=== PATIENT | male | born 1965 | race African-American/Black ===

== ENCOUNTER 2017-01-16 12:29 | Inpatient (IN) | payer OTHER ==
[2017-01-16 14:17] VITALS: BMI 32.3
--- NOTE | 2017-01-16 15:04 | HP ---
CIWA Score - CIWA Score Nausea/Vomitin Muscle Tremors: 3 Anxiety: 3 Agitation: 3 Paroxysmal Sweats: 1-Minimal Palms Moist Orientation: 0-Oriented Tacttile Disturbances: 2-Mild Itch/Numbness/Burn Auditory Disturbances: 2-Mild Harshness/Frighten Visual Disturbances: 2-Mild Sensitivity Headache: 2-Mild CIWA-Ar Total Score: 21 Admission ROS BHS - HPI Chief Complaint: i need help to stop drinking alcohol Allergies/Adverse Reactions: Allergies Allergy/AdvReac Type Severity Reaction Status Date / Time No Known Allergies Allergy Verified 01/16/17 14:54 History of Present Illness: this 51 year old male with alcohol dependence seeking help to stop using ,last detox 10/17/15 to 10/22/15 multiple medical problem type 2 dm,gerd,asthma schizophrenia longest period of sobriety 6 months - Ebola screening Have you traveled outside of the country in the last 21 days: No Have you had contact with anyone from an Ebola affected area: No Have you been sick,other than usual withdrawal symptoms: No Do you have a fever: No - Review of Systems Constitutional: Loss of Appetite, Malaise, Night Sweats, Changes in sleep EENT: reports: Nose Congestion Respiratory: reports: Other (asthma) Cardiac: reports: Palpitations GI: reports: Diarrhea, Nausea, Poor Appetite, Vomiting : reports: No Symptoms Reported Musculoskeletal: reports: Muscle Pain Integumentary: reports: Dryness Neuro: reports: Headache, Tremors Endocrine: reports: No Symptoms Reported Hematology: reports: No Symptoms Reported Psychiatric: reports: No Sypmtoms Reported (schizophrenia), Judgement Intact, Mood/Affect Appropiate Patient History - Patient Medical History Hx Anemia: No Hx Asthma: Yes (on albuterol inhaler) Hx Chronic Obstructive Pulmonary Disease (COPD): No Hx Cancer: No Hx Cardiac Disorders: No Hx Congestive Heart Failure: No Hx Hypertension: No Hx Hypercholesterolemia: No Hx Pacemaker: No HX Cerebrovascular Accident: No Hx Seizures: No Hx Dementia: No Hx Diabetes: Yes (NIDDM) Hx Gastrointestinal Disorders: Yes (acid reflux) Hx Liver Disease: No Hx Genitourinary Disorders: No Hx Sexually Transmitted Disorders: No Hx Renal Disease (ESRD): No Hx Thyroid Disease: No Hx Human Immunodeficiency Virus (HIV): No (NEGATIVE LAST 08/24) Hx Hepatitis C: No Hx Depression: Yes Hx Suicide Attempt: No Hx Bipolar Disorder: No Hx Schizophrenia: Yes Other Medical History: no suicidal,no homicidal - Patient Surgical History Past Surgical History: Yes Hx Neurologic Surgery: No Hx Cataract Extraction: No Hx Cardiac Surgery: No Hx Lung Surgery: No Hx Breast Surgery: No Hx Breast Biopsy: No Hx Abdominal Surgery: No Hx Appendectomy: No Hx Cholecystectomy: No Hx Genitourinary Surgery: No Hx Section: No Hx Orthopedic Surgery: Yes (R femur fx with sx/ libra in place in ) Anesthesia Reaction: No - PPD History Previous Implant?: Yes Documented Results: Positive w/o proof Results: CXR NEG 08/15/14 PPD to be Administered?: No - Smoking Cessation Smoking history: Current every day smoker Have you smoked in the past 12 months: Yes Aproximately how many cigarettes per day: 10 Cigars Per Day: 0 Hx Chewing Tobacco Use: No Initiated information on smoking cessation: Yes 'Breaking Loose' booklet given: 01/16/17 - Substance & Tx. History Hx Alcohol Use: Yes Hx Substance Use: No Substance Use Type: Alcohol Hx Substance Use Treatment: Yes ([facility] 10/17/15 to 10/22/15) - Substances Abused PCP Route: Smoking Frequency: 3-6 times per week Amount used: $10 Age of first use: 29 Date of Last Use: 01/13/17 Alcohol-beer Route: Oral Frequency: Daily Amount used: 1-6 pk. Age of first use: 17 Date of Last Use: 01/16/17 Family Disease History - Family Disease History Family Disease History: Diabetes: Mother (), Sister, Other: Father ( ALCOHOL) Admission Physical Exam S - Vital Signs Vital Signs: Vital Signs - 24 hr 01/16/17 14:14 Temperature 98.5 F Pulse Rate 82 Respiratory 18 Rate Blood Pressure 150/88 - Physical General Appearance: Yes: Moderate Distress, Tremorous, Irritable, Sweating, Anxious HEENTM: Yes: Rhinorrhea Respiratory: Yes: Lungs Clear, Normal Breath Sounds, No Respiratory Distress Neck: Yes: Within Normal Limits Breast: Yes: Within Normal Limits Cardiology: Yes: Within Normal Limits, Regular Rhythm, Regular Rate, S1, S2 Abdominal: Yes: Normal Bowel Sounds, Non Tender, Flat, Soft, Pulsatile Mass Genitourinary: Yes: Within Normal Limits Back: Yes: Within Normal Limits, Muscle Spasm Musculoskeletal: Yes: Within Normal Limits, full range of Motion, Muscle Pain Extremities: Yes: Normal Inspection, Normal Range of Motion, Tremors Neurological: Yes: siebel administrator II-XII NML intact, Fully Oriented, Alert, Motor Strength 5/5 Integumentary: Yes: Dry Lymphatic: Yes: Within Normal Limits - Diagnostic (1) Alcohol dependence with uncomplicated withdrawal Current Visit: No Status: Acute (2) Nicotine dependence Current Visit: No Status: Acute Qualifiers: Nicotine product type: cigarettes Substance use status: uncomplicated Qualified Code(s): F17.210 - Nicotine dependence, cigarettes, uncomplicated (3) Cocaine dependence Current Visit: No Status: Chronic Qualifiers: Substance use status: uncomplicated Qualified Code(s): F14.20 - Cocaine dependence, uncomplicated (4) DM Diabetes mellitus type 2 Current Visit: No Status: Chronic (5) Low back pain Current Visit: No Status: Chronic (6) PCP (phencyclidine) abuse Current Visit: No Status: Chronic (7) Schizophrenia Current Visit: No Status: Chronic (8) Asthma Current Visit: No Status: Chronic Qualifiers: Asthma severity: unspecified severity Asthma complication type: uncomplicated Qualified Code(s): J45.909 - Unspecified asthma, uncomplicated Cleared for Admission S - Detox or Rehab [facility] Level of Care: Medically Managed Detox Regimen/Protocol: Librium [facility] Breath Alcohol Content Breath Alcohol Content: 0 Urine Drug Screen - Results Drug Screen Negative: No Urine Drug Screen Results: DORIAN-Cocaine, PCP-Phencyclidine
[2017-01-16] MEDS ORDERED: ACETAMINOPHEN 325 MG TABLET (FP) PO PRN (15:17)
[2017-01-16] MEDS ORDERED: MAGNESIUM CITRATE 300 ML BOTTLE PO PRN (15:17)
[2017-01-16] MEDS ORDERED: chlordiazePOXIDE HCL 25 MG CAPSULE PO PRN (15:17)
[2017-01-16] MEDS ORDERED: hydrOXYzine PAMOATE 50 MG CAPSULE (FP) PO PRN (15:17)
[2017-01-16] MEDS ORDERED: MENTHOL/PHENOL 1 EACH UD MM PRN (15:17)
[2017-01-16] MEDS ORDERED: LOPERAMIDE HCL 2 MG CAPSULE PO PRN (15:17)
[2017-01-16] MEDS ORDERED: guaiFENesin/D-METHORPHAN HB 10 ML UNIT-DOSE CUPS PO PRN (15:17)
[2017-01-16] MEDS ORDERED: P-EPHED 60MG/TRIPROLIDI 2.5MG TABLET PO PRN (15:17)
[2017-01-16] MEDS ORDERED: MAG HYDROX/AL HYDROX/SIMETH 30 ML UNIT-DOSE CUP PO PRN (15:17)
[2017-01-16] MEDS ORDERED: IBUPROFEN 400 MG TABLET (FP) PO PRN (15:17)
[2017-01-16] MEDS ORDERED: MAGNESIUM HYDROX 2400MG/30ML ORAL SUSPENSION 30 ML CUP PO PRN (15:17)
[2017-01-16] MEDS ORDERED: ALBUTEROL SO4 6.7 GM HFA INHALER IH PRN (15:21)
[2017-01-16] MEDS ORDERED: INSULIN (NOVOLOG) ASPART 100 UNITS/ML 10ML VIAL SQ ONE (16:00)
[2017-01-16] MEDS ORDERED: chlordiazePOXIDE HCL 25 MG CAPSULE PO ONE (16:00)
[2017-01-16 17:32] LABS: URINE APPEARANCE CLEAR; URINE BILIRUBIN NEGATIVE (NEGATIVE); URINE BLOOD NEGATIVE (NEGATIVE); URINE COLOR YELLOW; URINE GLUCOSE (UA) 3+ (NEGATIVE); URINE KETONE TRACE (NEGATIVE); URINE LEUK ESTERASE NEGATIVE (NEGATIVE); URINE NITRITE NEGATIVE (NEGATIVE); URINE UROBILINOGEN NEGATIVE E.U./dl (0.2-1.0)
[2017-01-16 17:33] LABS: URINE PROTEIN 1+ (NEGATIVE)
[2017-01-16] MEDS: INSULIN (NOVOLOG) ASPART 100 UNITS/ML 10ML VIAL SQ SCH ×2 (17:35→22:19)
[2017-01-16 17:36] LABS: URINE MUCUS RARE; URINE RBC 2 /hpf (0-3); URINE WBC 1 /hpf (3-5)
[2017-01-16] MEDS ORDERED: INSULIN (NOVOLOG) ASPART 100 UNITS/ML 10ML VIAL ONE (17:36)
[2017-01-16] MEDS: metFORMIN HCL 500 MG TABLET (FP) PO SCH (17:38)
[2017-01-16] MEDS: chlordiazePOXIDE HCL 25 MG CAPSULE PO SCH ×2 (17:40→22:19)
[2017-01-16] MEDS: diphenhydrAMINE HCL 50 MG CAPSULE PO PRN (22:19)
[2017-01-16] MEDS: THIAMINE HCL 100 MG TABLET (FP) PO SCH (22:19)
[2017-01-17] MEDS: chlordiazePOXIDE HCL 25 MG CAPSULE PO SCH ×4 (05:57→22:17)
[2017-01-17] MEDS ORDERED: sitaGLIPtin PHOSPHATE 100 MG TABLET (FP) PO SCH (07:00)
[2017-01-17] MEDS ORDERED: sitaGLIPtin PHOSPHATE 50 MG TABLET PO SCH (07:48)
[2017-01-17] MEDS: INSULIN (NOVOLOG) ASPART 100 UNITS/ML 10ML VIAL SQ SCH ×4 (07:58→22:17)
[2017-01-17] MEDS: sitaGLIPtin PHOSPHATE 50 MG TABLET PO SCH (07:59)
[2017-01-17] MEDS: metFORMIN HCL 500 MG TABLET (FP) PO SCH ×2 (08:01→17:11)
[2017-01-17] MEDS: PANTOPRAZOLE 40 MG TABLET (FP) PO SCH (08:07)
[2017-01-17] MEDS ORDERED: INSULIN (NOVOLOG) ASPART 100 UNITS/ML 10ML VIAL ONE ×2 (08:11→16:33)
[2017-01-17 10:01] LABS: MCH 28.5 pg (25.7-33.7); MCHC 32.8 g/dl (32.0-35.9); MEAN CELL VOLUME 87.1 fl (80-96); MEAN PLT VOLUME 8.3 fl (7.5-11.1); PLATELET COUNT 254 K/MM3 (134-434); RDW 14.1 % (11.9-15.9); WHITE BLOOD COUNT 4.3 K/mm3 (4.0-10.0)
[2017-01-17] MEDS: ASPIRIN 81 MG CHEWABLE TABLETS PO SCH (10:30)
[2017-01-17] MEDS: PRENATAL VITAMINS W/ FOLIC ACID TABLET (FP) PO SCH (10:30)
[2017-01-17 10:31] LABS: BILIRUBIN,TOTAL 0.5 mg/dL (0.2-1.0); CALCIUM 9.5 mg/dL (8.5-10.1); COCKROFT - GAULT 106.8; CREATININE 1.3 mg/dL (0.7-1.3)
--- NOTE | 2017-01-17 14:27 | CONSULT ---
[facility] Psychiatric Consult - Data Date of interview: 01/17/17 Admission source: [facility] Identifying data: Readmission to [facility] for this 51 y/o AA male seeking detox treatment for alcohol and phencyclidine dependence.Patient is single,a father of three,domiciled,unemployed and supported on welfare. Substance Abuse History: - Smoking Cessation. Smoking history: Current every day smoker. Have you smoked in the past 12 months: Yes. Aproximately how many cigarettes per day: 10. Cigars Per Day: 0. Hx Chewing Tobacco Use: No. Initiated information on smoking cessation: Yes. 'Breaking Loose' booklet given : 01/16/17. - Substance & Tx. History. Hx Alcohol Use: Yes. Hx Substance Use : No. Substance Use Type: Alcohol. Hx Substance Use Treatment: Yes ([facility] 10/16 to 10/22/15). - Substances Abused. PCP. Route: Smoking. Frequency: 3- 6 times per week. Amount used: $10. Age of first use: 29. Date of Last Use: 01/13/17. Alcohol-beer. Route: Oral. Frequency: Daily. Amount used: 1-6 pk. Age of first use: 17. Date of Last Use: 01/16/17. Confirmed by patient. Medical History: Bronchial asthma,GERD,diabetes mellitus and a history of orthosurgery,in the ,for fracture of right femur (libra still in situ). Psychiatric History: Diagnosed with Schizophrenia (2015).History of three psychiatric hospitalizations ([facility] in [facility]).Mr Robertson indicates that he is prescribed prozac 20 mg/day+ risperdal (dose not recalled).No recent history of OPD care.Patient states that he has not been adherent to his medications " for weeks " and he wishes to resume them in this hospital course.No reported history of suicide attempts. Physical/Sexual Abuse/Trauma History: Patient denies. Additional Comment: Urine Drug Screen Results: DORIAN-Cocaine, PCP- Phencyclidine.Noted. Mental Status Exam - Mental Status Exam Alert and Oriented to: Time, Place, Person Cognitive Function: Good Patient Appearance: Well Groomed Mood: Withdrawn, Anxious Affect: Mood Congruent Patient Behavior: Fatigued, Appropriate, Cooperative Speech Pattern: Clear Voice Loudness: Normal Thought Process: Goal Oriented Thought Disorder: Bizarre Hallucinations: Denies Suicidal Ideation: Denies Homicidal Ideation: Denies Insight/Judgement: Poor Sleep: Fair Appetite: Good Muscle strength/Tone: Normal Gait/Station: Normal Psychiatric Findings - Problem List ([place] 1, 2,3) (1) Schizophrenia Current Visit: Yes Status: Chronic (2) Alcohol dependence with uncomplicated withdrawal Current Visit: Yes Status: Acute (3) PCP dependence Current Visit: Yes Status: Acute (4) Nicotine dependence Current Visit: Yes Status: Acute Qualifiers: Nicotine product type: cigarettes Substance use status: uncomplicated Qualified Code(s): F17.210 - Nicotine dependence, cigarettes, uncomplicated (5) Asthma Current Visit: No Status: Chronic Qualifiers: Asthma severity: unspecified severity Asthma complication type: uncomplicated Qualified Code(s): J45.909 - Unspecified asthma, uncomplicated (6) DM Diabetes mellitus type 2 Current Visit: Yes Status: Chronic (7) GERD (gastroesophageal reflux disease) Current Visit: Yes Status: Chronic Qualifiers: Esophagitis presence: esophagitis presence not specified Qualified Code(s): K21.9 - Gastro-esophageal reflux disease without esophagitis - Initial Treatment Plan Initial Treatment Plan: Psychoeducation.Detoxification.Medications : prozac 20 mg po daily + risperdal 1 mg po bid.Side effects/benefits discussed with patient.He is made aware of risk of abnormal involuntary movements,akathisia, akinesia,dystonias,dyskinesias,neuroleptic malignat syndrome,galactorrhea, gynecomastia and sexual impotence (risperdal),suicidal ideation,priapism and sexual dysfunction (prozac).Patient reports no prior history of adverse events from these medications.He is in agreement with this careplan.Observation.Review of pharmacy claims : script for prozac (20 mg # 30) issued on 12/09/16 at [facility] by provider Anthony Diallo).
--- NOTE | 2017-01-17 15:42 | PN ---
[facility] CIWA - CIWA Score Nausea/Vomitin-Mild Nausea/No Vomiting Muscle Tremors: 3 Anxiety: 4-Mod. Anxious/Guarded Agitation: 2 Paroxysmal Sweats: 3 Orientation: 0-Oriented Tacttile Disturbances: 0-None Auditory Disturbances: 2-Mild Harshness/Frighten Visual Disturbances: 2-Mild Sensitivity Headache: 0-None Present CIWA-Ar Total Score: 17 S Progress Note (SOAP) Subjective: Tremors, Fatigue, Interrupted Sleep. Objective: PT. A & O X 3. NO ACUTE DISTRESS. 01/17/17 15:40 Vital Signs Temperature 97.6 F 01/17/17 11:03 Pulse Rate 86 01/17/17 11:03 Respiratory Rate 20 01/17/17 11:03 Blood Pressure 129/86 01/17/17 11:03 O2 Sat by Pulse Oximetry (%) Laboratory Tests 01/16/17 01/17/17 01/17/17 15:00 05:58 06:00 WBC 4.3 RBC 5.36 Hgb 15.3 D Hct 46.7 MCV 87.1 MCHC 32.8 RDW 14.1 Plt Count 254 MPV 8.3 D Sodium Potassium Chloride Carbon Dioxide Anion Gap BUN Creatinine Creat Clearance w eGFR POC Glucometer 235 Random Glucose Calcium Total Bilirubin AST ALT Alkaline Phosphatase Total Protein Albumin Urine Color Yellow Urine Appearance Clear Urine pH 5.0 D Ur Specific [place] >= 1.030 H Urine Protein 1+ H Urine Glucose (UA) 3+ H Urine Ketones Trace H Urine Blood Negative Urine Nitrite Negative Urine Bilirubin Negative Urine Urobilinogen Negative Ur Leukocyte Esterase Negative Urine RBC 2 Urine WBC 1 Urine Mucus Rare RPR Titer 01/17/17 01/17/17 01/17/17 06:00 06:00 11:20 WBC RBC Hgb Hct MCV MCHC RDW Plt Count MPV Sodium 141 Potassium 4.0 Chloride 103 Carbon Dioxide 29 Anion Gap 9 BUN 11 D Creatinine 1.3 Creat Clearance w eGFR 58.43 POC Glucometer 247 Random Glucose 231 H D Calcium 9.5 Total Bilirubin 0.5 AST 22 D ALT 53 D Alkaline Phosphatase 118 H D Total Protein 8.0 D Albumin 4.0 D Urine Color Urine Appearance Urine pH Ur Specific [place] Urine Protein Urine Glucose (UA) Urine Ketones Urine Blood Urine Nitrite Urine Bilirubin Urine Urobilinogen Ur Leukocyte Esterase Urine RBC Urine WBC Urine Mucus RPR Titer Nonreactive LABS NOTED. Assessment: 01/17/17 15:41 WITHDRAWAL SYMPTOMS. Plan: CONTINUE DETOX.
--- NOTE | 2017-01-17 15:47 | EKG ---
Test Reason : Blood Pressure : / mmHG Vent. Rate : 073 BPM Atrial Rate : 073 BPM P-R Int : 164 ms QRS Dur : 084 ms QT Int : 394 ms P-R-T Axes : 072 046 010 degrees QTc Int : 434 ms NORMAL SINUS RHYTHM NONSPECIFIC T WAVE ABNORMALITY ABNORMAL ECG NO PREVIOUS ECGS AVAILABLE Confirmed by LESLEY COLMENARES, JEWELS ([id number]) on 01/17/2017 3:47:25 PM Referred By: Confirmed By:JEWELS SUTTON MD
[2017-01-17] MEDS: THIAMINE HCL 100 MG TABLET (FP) PO SCH (22:16)
[2017-01-17] MEDS: risperiDONE 1 MG TABLET (FP) PO SCH (22:16)
[2017-01-17] MEDS: diphenhydrAMINE HCL 50 MG CAPSULE PO PRN (22:17)
[2017-01-18] MEDS: chlordiazePOXIDE HCL 25 MG CAPSULE PO SCH ×2 (05:27→10:11)
[2017-01-18] MEDS: metFORMIN HCL 500 MG TABLET (FP) PO SCH ×2 (06:14→17:18)
[2017-01-18] MEDS: sitaGLIPtin PHOSPHATE 50 MG TABLET PO SCH (06:15)
[2017-01-18] MEDS: INSULIN (NOVOLOG) ASPART 100 UNITS/ML 10ML VIAL SQ SCH ×4 (06:16→23:21)
[2017-01-18] MEDS ORDERED: INSULIN (NOVOLOG) ASPART 100 UNITS/ML 10ML VIAL ONE ×2 (06:24→11:52)
[2017-01-18] MEDS: FLUoxetine HCL 20 MG CAPSULE (FP) PO SCH (10:11)
[2017-01-18] MEDS: PANTOPRAZOLE 40 MG TABLET (FP) PO SCH (10:11)
[2017-01-18] MEDS: PRENATAL VITAMINS W/ FOLIC ACID TABLET (FP) PO SCH (10:11)
[2017-01-18] MEDS: risperiDONE 1 MG TABLET (FP) PO SCH ×2 (10:11→22:18)
[2017-01-18] MEDS: ASPIRIN 81 MG CHEWABLE TABLETS PO SCH (10:11)
--- NOTE | 2017-01-18 13:51 | PN ---
S CIWA - CIWA Score Nausea/Vomitin Muscle Tremors: 3 Anxiety: 3 Agitation: 3 Paroxysmal Sweats: No Perspiration Orientation: 0-Oriented Tacttile Disturbances: 0-None Auditory Disturbances: 0-None Visual Disturbances: 0-None Headache: 3-Moderate CIWA-Ar Total Score: 15 S Progress Note (SOAP) Subjective: Sweating, chills, tremor, nausea Objective: 01/18/17 13:50 Last Vital Signs Temp Pulse Resp BP Pulse Ox 97.1 F L 85 20 106/74 01/18/17 13:09 01/18/17 13:09 01/18/17 13:09 01/18/17 13:09 Laboratory Tests 01/16/17 01/17/17 01/17/17 15:00 05:58 06:00 WBC 4.3 RBC 5.36 Hgb 15.3 D Hct 46.7 MCV 87.1 MCHC 32.8 RDW 14.1 Plt Count 254 MPV 8.3 D Sodium Potassium Chloride Carbon Dioxide Anion Gap BUN Creatinine Creat Clearance w eGFR POC Glucometer 235 Random Glucose Calcium Total Bilirubin AST ALT Alkaline Phosphatase Total Protein Albumin Urine Color Yellow Urine Appearance Clear Urine pH 5.0 D Ur Specific [place] >= 1.030 H Urine Protein 1+ H Urine Glucose (UA) 3+ H Urine Ketones Trace H Urine Blood Negative Urine Nitrite Negative Urine Bilirubin Negative Urine Urobilinogen Negative Ur Leukocyte Esterase Negative Urine RBC 2 Urine WBC 1 Urine Mucus Rare RPR Titer 01/17/17 01/17/17 01/17/17 06:00 06:00 11:20 WBC RBC Hgb Hct MCV MCHC RDW Plt Count MPV Sodium 141 Potassium 4.0 Chloride 103 Carbon Dioxide 29 Anion Gap 9 BUN 11 D Creatinine 1.3 Creat Clearance w eGFR 58.43 POC Glucometer 247 Random Glucose 231 H D Calcium 9.5 Total Bilirubin 0.5 AST 22 D ALT 53 D Alkaline Phosphatase 118 H D Total Protein 8.0 D Albumin 4.0 D Urine Color Urine Appearance Urine pH Ur Specific [place] Urine Protein Urine Glucose (UA) Urine Ketones Urine Blood Urine Nitrite Urine Bilirubin Urine Urobilinogen Ur Leukocyte Esterase Urine RBC Urine WBC Urine Mucus RPR Titer Nonreactive 01/17/17 01/18/17 01/18/17 16:10 05:26 11:45 WBC RBC Hgb Hct MCV MCHC RDW Plt Count MPV Sodium Potassium Chloride Carbon Dioxide Anion Gap BUN Creatinine Creat Clearance w eGFR POC Glucometer 201 225 239 Random Glucose Calcium Total Bilirubin AST ALT Alkaline Phosphatase Total Protein Albumin Urine Color Urine Appearance Urine pH Ur Specific [place] Urine Protein Urine Glucose (UA) Urine Ketones Urine Blood Urine Nitrite Urine Bilirubin Urine Urobilinogen Ur Leukocyte Esterase Urine RBC Urine WBC Urine Mucus RPR Titer Labs noted: UA: protein 1+, glucose 3+ Assessment: 01/18/17 13:51 Withdrawal symptoms Noted with proteinuria and glycosuria secondary to uncontrolled DMT2 Plan: Continue detox Proteinuria and glycosuria secondary to uncontrolled DMT2: encouraged to drink lots of water, continue diabetic regimen, repeat UA
[2017-01-18] MEDS: chlordiazePOXIDE 5 MG CAPSULE PO SCH ×2 (17:18→22:18)
[2017-01-18] MEDS: THIAMINE HCL 100 MG TABLET (FP) PO SCH (22:18)
[2017-01-19] MEDS: chlordiazePOXIDE 5 MG CAPSULE PO SCH ×2 (05:45→10:10)
[2017-01-19] MEDS ORDERED: INSULIN (NOVOLOG) ASPART 100 UNITS/ML 10ML VIAL ONE ×3 (06:06→20:46)
[2017-01-19] MEDS: metFORMIN HCL 500 MG TABLET (FP) PO SCH ×2 (06:51→17:02)
[2017-01-19] MEDS: INSULIN (NOVOLOG) ASPART 100 UNITS/ML 10ML VIAL SQ SCH ×4 (06:51→22:16)
[2017-01-19] MEDS: sitaGLIPtin PHOSPHATE 50 MG TABLET PO SCH (06:52)
[2017-01-19] MEDS: PANTOPRAZOLE 40 MG TABLET (FP) PO SCH (07:32)
[2017-01-19] MEDS: FLUoxetine HCL 20 MG CAPSULE (FP) PO SCH (10:11)
[2017-01-19] MEDS: risperiDONE 1 MG TABLET (FP) PO SCH ×2 (10:11→22:14)
[2017-01-19] MEDS: PRENATAL VITAMINS W/ FOLIC ACID TABLET (FP) PO SCH (10:11)
[2017-01-19] MEDS: ASPIRIN 81 MG CHEWABLE TABLETS PO SCH (10:11)
--- NOTE | 2017-01-19 12:36 | PN ---
BHS Progress Note (SOAP) Subjective: Sweating,interrupted sleep,restless Objective: 01/19/17 12:36 Vital Signs - 8 hr 01/19/17 01/19/17 06:15 09:22 Temperature 98.2 F 98.5 F Pulse Rate 81 88 Respiratory 18 18 Rate Blood Pressure 123/79 130/87 Laboratory Last Values WBC 4.3 K/mm3 (4.0-10.0) 01/17/17 06:00 RBC 5.36 M/mm3 (4.00-5.60) 01/17/17 06:00 Hgb 15.3 GM/dL (11.7-16.9) D 01/17/17 06:00 Hct 46.7 % (35.4-49) 01/17/17 06:00 MCV 87.1 fl (80-96) 01/17/17 06:00 MCHC 32.8 g/dl (32.0-35.9) 01/17/17 06:00 RDW 14.1 % (11.9-15.9) 01/17/17 06:00 Plt Count 254 K/MM3 (134-434) 01/17/17 06:00 MPV 8.3 fl (7.5-11.1) D 01/17/17 06:00 Sodium 141 mmol/L (136-145) 01/17/17 06:00 Potassium 4.0 mmol/L (3.5-5.1) 01/17/17 06:00 Chloride 103 mmol/L (98-107) 01/17/17 06:00 Carbon Dioxide 29 mmol/L (21-32) 01/17/17 06:00 Anion Gap 9 (8-16) 01/17/17 06:00 BUN 11 mg/dL (7-18) D 01/17/17 06:00 Creatinine 1.3 mg/dL (0.7-1.3) 01/17/17 06:00 Creat Clearance w eGFR 58.43 (>60) 01/17/17 06:00 POC Glucometer 239 UNITS (()) 01/19/17 05:43 Random Glucose 231 mg/dL (74-106) H D 01/17/17 06:00 Calcium 9.5 mg/dL (8.5-10.1) 01/17/17 06:00 Total Bilirubin 0.5 mg/dL (0.2-1.0) 01/17/17 06:00 AST 22 U/L (15-37) D 01/17/17 06:00 ALT 53 U/L (12-78) D 01/17/17 06:00 Alkaline Phosphatase 118 U/L (45-117) H D 01/17/17 06:00 Total Protein 8.0 g/dl (6.4-8.2) D 01/17/17 06:00 Albumin 4.0 g/dl (3.4-5.0) D 01/17/17 06:00 Urine Color Yellow 01/16/17 15:00 Urine Appearance Clear 01/16/17 15:00 Urine pH 5.0 (5.0-8.0) D 01/16/17 15:00 Ur Specific [place] >= 1.030 (1.005-1.025) H 01/16/17 15:00 Urine Protein 1+ (NEGATIVE) H 01/16/17 15:00 Urine Glucose (UA) 3+ (NEGATIVE) H 01/16/17 15:00 Urine Ketones Trace (NEGATIVE) H 01/16/17 15:00 Urine Blood Negative (NEGATIVE) 01/16/17 15:00 Urine Nitrite Negative (NEGATIVE) 01/16/17 15:00 Urine Bilirubin Negative (NEGATIVE) 01/16/17 15:00 Urine Urobilinogen Negative E.U./dl (0.2-1.0) 01/16/17 15:00 Ur Leukocyte Esterase Negative (NEGATIVE) 01/16/17 15:00 Urine RBC 2 /hpf (0-3) 01/16/17 15:00 Urine WBC 1 /hpf (3-5) 01/16/17 15:00 Urine Mucus Rare 01/16/17 15:00 RPR Titer Nonreactive (NONREACTIVE) 01/17/17 06:00 labs noted Assessment: 01/19/17 12:36 Withdrawal sx. Plan: Continue detox
[2017-01-19] MEDS: chlordiazePOXIDE HCL 10 MG CAPSULE PO SCH ×2 (17:02→22:14)
[2017-01-19 17:28] LABS: URINE APPEARANCE CLEAR; URINE BILIRUBIN NEGATIVE (NEGATIVE); URINE BLOOD NEGATIVE (NEGATIVE); URINE COLOR YELLOW; URINE GLUCOSE (UA) 3+ (NEGATIVE); URINE KETONE TRACE (NEGATIVE); URINE LEUK ESTERASE NEGATIVE (NEGATIVE); URINE NITRITE NEGATIVE (NEGATIVE); URINE PROTEIN NEGATIVE (NEGATIVE); URINE UROBILINOGEN NEGATIVE E.U./dl (0.2-1.0)
[2017-01-19] MEDS: THIAMINE HCL 100 MG TABLET (FP) PO SCH (22:14)
[2017-01-20] MEDS: diphenhydrAMINE HCL 50 MG CAPSULE PO PRN (00:02)
[2017-01-20] MEDS: chlordiazePOXIDE HCL 10 MG CAPSULE PO SCH ×2 (05:47→11:59)
[2017-01-20] MEDS: sitaGLIPtin PHOSPHATE 50 MG TABLET PO SCH (06:40)
[2017-01-20] MEDS: metFORMIN HCL 500 MG TABLET (FP) PO SCH (06:40)
[2017-01-20] MEDS: INSULIN (NOVOLOG) ASPART 100 UNITS/ML 10ML VIAL SQ SCH ×2 (07:42→11:52)
[2017-01-20] MEDS: PANTOPRAZOLE 40 MG TABLET (FP) PO SCH (07:42)
[2017-01-20 09:16] VITALS: BP 115/81; PULSE 84; TEMP 99.8
[2017-01-20] MEDS: PRENATAL VITAMINS W/ FOLIC ACID TABLET (FP) PO SCH (10:28)
[2017-01-20] MEDS: risperiDONE 1 MG TABLET (FP) PO SCH (10:28)
[2017-01-20] MEDS: ASPIRIN 81 MG CHEWABLE TABLETS PO SCH (10:28)
[2017-01-20] MEDS: FLUoxetine HCL 20 MG CAPSULE (FP) PO SCH (10:28)
--- NOTE | 2017-01-20 12:32 | DS ---
[facility] Detox Discharge Summary Admission Date: 01/16/17 Discharge Date: 01/20/17 - History Present History: Alcohol Dependence Pertinent Past History: Type II DM Asthma GERD - Physical Exam Results Vital Signs: Vital Signs Temperature 99.8 F H 01/20/17 09:15 Pulse Rate 84 01/20/17 09:15 Respiratory Rate 18 01/20/17 09:15 Blood Pressure 115/81 01/20/17 09:15 O2 Sat by Pulse Oximetry (%) Pertinent Admission Physical Exam Findings: Withdrawal sx. Laboratory Last Values WBC 4.3 K/mm3 (4.0-10.0) 01/17/17 06:00 RBC 5.36 M/mm3 (4.00-5.60) 01/17/17 06:00 Hgb 15.3 GM/dL (11.7-16.9) D 01/17/17 06:00 Hct 46.7 % (35.4-49) 01/17/17 06:00 MCV 87.1 fl (80-96) 01/17/17 06:00 MCHC 32.8 g/dl (32.0-35.9) 01/17/17 06:00 RDW 14.1 % (11.9-15.9) 01/17/17 06:00 Plt Count 254 K/MM3 (134-434) 01/17/17 06:00 MPV 8.3 fl (7.5-11.1) D 01/17/17 06:00 Sodium 141 mmol/L (136-145) 01/17/17 06:00 Potassium 4.0 mmol/L (3.5-5.1) 01/17/17 06:00 Chloride 103 mmol/L (98-107) 01/17/17 06:00 Carbon Dioxide 29 mmol/L (21-32) 01/17/17 06:00 Anion Gap 9 (8-16) 01/17/17 06:00 BUN 11 mg/dL (7-18) D 01/17/17 06:00 Creatinine 1.3 mg/dL (0.7-1.3) 01/17/17 06:00 Creat Clearance w eGFR 58.43 (>60) 01/17/17 06:00 POC Glucometer 293 UNITS (()) 01/20/17 05:46 Random Glucose 231 mg/dL (74-106) H D 01/17/17 06:00 Calcium 9.5 mg/dL (8.5-10.1) 01/17/17 06:00 Total Bilirubin 0.5 mg/dL (0.2-1.0) 01/17/17 06:00 AST 22 U/L (15-37) D 01/17/17 06:00 ALT 53 U/L (12-78) D 01/17/17 06:00 Alkaline Phosphatase 118 U/L (45-117) H D 01/17/17 06:00 Total Protein 8.0 g/dl (6.4-8.2) D 01/17/17 06:00 Albumin 4.0 g/dl (3.4-5.0) D 01/17/17 06:00 Urine Color Yellow 01/19/17 13:00 Urine Appearance Clear 01/19/17 13:00 Urine pH 5.0 (5.0-8.0) 01/19/17 13:00 Ur Specific [place] >= 1.030 (1.005-1.025) H 01/19/17 13:00 Urine Protein Negative (NEGATIVE) 01/19/17 13:00 Urine Glucose (UA) 3+ (NEGATIVE) H 01/19/17 13:00 Urine Ketones Trace (NEGATIVE) H 01/19/17 13:00 Urine Blood Negative (NEGATIVE) 01/19/17 13:00 Urine Nitrite Negative (NEGATIVE) 01/19/17 13:00 Urine Bilirubin Negative (NEGATIVE) 01/19/17 13:00 Urine Urobilinogen Negative E.U./dl (0.2-1.0) 01/19/17 13:00 Ur Leukocyte Esterase Negative (NEGATIVE) 01/19/17 13:00 Urine RBC 2 /hpf (0-3) 01/16/17 15:00 Urine WBC 1 /hpf (3-5) 01/16/17 15:00 Urine Mucus Rare 01/16/17 15:00 RPR Titer Nonreactive (NONREACTIVE) 01/17/17 06:00 labs noted - Treatment Hospital Course: Detox Protocol Followed, Detoxed Safely, Responded well, Discharged Condition Good, Rehab Referral Accepted Patient has Accepted a Rehab Referral to: [facility] rehab - Medication Discharge Medications: Ambulatory Orders Albuterol Sulfate Inhaler - [Ventolin HFA Inhaler -] 2 inh IH Q4H PRN 10/19/12 Aspirin [ASA -] 81 mg PO DAILY #30 tab.chew 07/12/15 Fluoxetine HCl [Prozac] 20 mg PO DAILY #30 capsule 10/17/15 Metformin HCl [Glucophage] 1,000 mg PO BID 01/16/17 Pantoprazole Sodium [Protonix -] 40 mg PO AM 01/16/17 Sitagliptin Phosphate [Januvia] 100 mg PO AM 01/16/17 Fluoxetine HCl [Prozac] 20 mg PO DAILY #30 capsule 01/17/17 Risperidone [Risperdal] 3 mg PO HS #30 tablet 01/17/17 - Diagnosis (1) Alcohol dependence with uncomplicated withdrawal Current Visit: Yes Status: Acute (2) Nicotine dependence Current Visit: Yes Status: Acute Qualifiers: Nicotine product type: cigarettes Substance use status: uncomplicated Qualified Code(s): F17.210 - Nicotine dependence, cigarettes, uncomplicated (3) DM Diabetes mellitus type 2 Current Visit: Yes Status: Chronic (4) GERD (gastroesophageal reflux disease) Current Visit: Yes Status: Chronic Qualifiers: Esophagitis presence: esophagitis presence not specified Qualified Code(s): K21.9 - Gastro-esophageal reflux disease without esophagitis (5) Schizophrenia Current Visit: Yes Status: Chronic (6) Asthma Current Visit: Yes Status: Chronic Qualifiers: Asthma severity: mild intermittent Asthma complication type: uncomplicated Qualified Code(s): J45.20 - Mild intermittent asthma, uncomplicated - AMA Did Patient Leave Against Medical Advice: No
== END 2017-01-20 13:02 | disposition home or self-care (01) | DRG 775 ==
LOC: YASAS 12:29 → Y3N 15:24
PROVIDERS: ADMIT Internal Medicine; ATTEND Internal Medicine
PROC: HZ2ZZZZ Detoxification Services for Substance Abuse Treatment (ICD-10-PCS; principal; 2017-01-16)
DX: F10.230 Alcohol dependence with withdrawal, uncomplicated (principal); F16.10 Hallucinogen abuse, uncomplicated; F17.210 Nicotine dependence, cigarettes, uncomplicated; F20.9 Schizophrenia, unspecified; E11.65 Type 2 diabetes mellitus with hyperglycemia; K21.9 Gastro-esophageal reflux disease without esophagitis; J45.20 Mild intermittent asthma, uncomplicated; R80.3 Bence Jones proteinuria; R81 Glycosuria; M54.5 Low back pain; G89.29 Other chronic pain; Z79.4 Long term (current) use of insulin; Z79.82 Long term (current) use of aspirin; Z79.84 Long term (current) use of oral hypoglycemic drugs
CPT/HCPCS: 36415; 71020-TC; 80053; 81003; 81015; 85027; 86593; 93005; 93010; J2794

== ENCOUNTER 2017-04-16 10:26 | Inpatient (IN) | payer OTHER ==
[2017-04-16 10:54] VITALS: BMI 27.9
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
[2017-04-16] MEDS ORDERED: guaiFENesin/D-METHORPHAN HB 10 ML UNIT-DOSE CUPS PO PRN (14:25)
[2017-04-16] MEDS ORDERED: MAGNESIUM HYDROX 2400MG/30ML ORAL SUSPENSION 30 ML CUP PO PRN (14:25)
[2017-04-16] MEDS ORDERED: P-EPHED 60MG/TRIPROLIDI 2.5MG TABLET PO PRN (14:25)
[2017-04-16] MEDS ORDERED: MAGNESIUM CITRATE 300 ML BOTTLE PO PRN (14:25)
[2017-04-16] MEDS ORDERED: ACETAMINOPHEN 325 MG TABLET (FP) PO PRN (14:25)
[2017-04-16] MEDS ORDERED: NICOTINE POLACRILEX 4 MG GUM BC PRN (14:25)
[2017-04-16] MEDS ORDERED: MAG HYDROX/AL HYDROX/SIMETH 30 ML UNIT-DOSE CUP PO PRN (14:25)
[2017-04-16] MEDS ORDERED: MENTHOL/PHENOL 1 EACH UD MM PRN (14:25)
[2017-04-16] MEDS ORDERED: hydrOXYzine PAMOATE 50 MG CAPSULE (FP) PO PRN (14:25)
[2017-04-16] MEDS ORDERED: LOPERAMIDE HCL 2 MG CAPSULE PO PRN (14:25)
[2017-04-16] MEDS ORDERED: diphenhydrAMINE HCL 50 MG CAPSULE PO PRN (14:25)
[2017-04-16] MEDS ORDERED: ALBUTEROL SO4 6.7 GM HFA INHALER IH PRN (14:26)
--- NOTE | 2017-04-16 15:49 | CONSULT ---
[facility] Psychiatric Consult - Data Date of interview: 04/16/17 Admission source: [facility] Identifying data: This is 51 years old male with psychiatric hospitalization history, intoxicated with: Cocaine, Opioids, PCP, Alcohol and Nicotine Substance Abuse History: - Smoking Cessation. Smoking history: Current every day smoker. Have you smoked in the past 12 months: Yes. Aproximately how many cigarettes per day: 10. Cigars Per Day: 0. Hx Chewing Tobacco Use: No. Initiated information on smoking cessation: Yes. 'Breaking Loose' booklet given : 04/16/17. - Substance & Tx. History. Hx Alcohol Use: Yes. Hx Substance Use : Yes. Substance Use Type: Alcohol, Cocaine. Hx Substance Use Treatment: Yes ( last detox [facility] 01/2017). - Substances Abused. Alcohol. Route: Oral. Frequency: Daily. Amount used: 2 6PKS BEER/ 1/2 PINT. Age of first use: 22. Date of Last Use: 04/15/17. Cocaine. Route: Smoking. Frequency: Daily. Amount used: $500. Age of first use: 28. Date of Last Use: 04/15/17 Medical History: Asthma, DM-2, GERD, Seizure history, Syncope history Psychiatric History: Patient reports history opf Schizoaffective disorder, Schizophrenia, reports most recent [sychiatric admoissopm on [facility] with suicidal ideation, reports no history of suicidal attempts. Patient reprot currently taking: Risperdal 3mg po qhs. Prozac 20mg poqd Physical/Sexual Abuse/Trauma History: Denies Additional Comment: Risperdal 3mg po qhs. Prozac 20mg poqd Mental Status Exam - Mental Status Exam Alert and Oriented to: Person Cognitive Function: Fair Patient Appearance: Unkempt Mood: Suspicious, Anxious Affect: Constricted Patient Behavior: Guarded Speech Pattern: Delayed Voice Loudness: Normal Thought Process: Circumstantial Thought Disorder: Being Controlled Hallucinations: Denies Suicidal Ideation: Denies Homicidal Ideation: Denies Insight/Judgement: Fair Sleep: Difficulty falling asleep Appetite: Fair Muscle strength/Tone: Normal Gait/Station: Normal Additional Comments: Risperdal 3mg po qhs. Prozac 20mg poqd Psychiatric Findings - Problem List ([place] 1, 2,3) (1) Alcohol dependence with uncomplicated withdrawal Current Visit: Yes Status: Chronic (2) Cocaine dependence Current Visit: Yes Status: Chronic Qualifiers: Substance use status: uncomplicated Qualified Code(s): F14.20 - Cocaine dependence, uncomplicated (3) Nicotine dependence Current Visit: Yes Status: Chronic Qualifiers: Nicotine product type: cigarettes Substance use status: uncomplicated Qualified Code(s): F17.210 - Nicotine dependence, cigarettes, uncomplicated (4) Opioid dependence Current Visit: Yes Status: Chronic Qualifiers: Substance use status: uncomplicated Qualified Code(s): F11.20 - Opioid dependence, uncomplicated Comment: episodic (5) Alcohol dependence Current Visit: No Status: Acute (6) PCP dependence Current Visit: No Status: Acute (7) Anxiety and depression Current Visit: No Status: Chronic (8) Heroin abuse Current Visit: No Status: Chronic Comment: PER PT USES ON/OFF BUT NEGATIVE TOXICOLOGY TODAY. (9) PCP (phencyclidine) abuse Current Visit: No Status: Chronic (10) Schizophrenia Current Visit: No Status: Chronic (11) Drug-induced mood disorder Current Visit: No Status: Suspected - Initial Treatment Plan Initial Treatment Plan: Risperdal 3mg po qhs. Prozac 20mg poqd
[2017-04-16] MEDS: metFORMIN HCL 500 MG TABLET (FP) PO SCH (16:45)
[2017-04-16] MEDS ORDERED: chlordiazePOXIDE HCL 25 MG CAPSULE PO PRN (16:51)
[2017-04-16] MEDS: chlordiazePOXIDE HCL 25 MG CAPSULE PO SCH ×2 (17:04→22:56)
[2017-04-16 17:24] LABS: URINE APPEARANCE CLEAR; URINE BILIRUBIN NEGATIVE (NEGATIVE); URINE BLOOD NEGATIVE (NEGATIVE); URINE COLOR YELLOW; URINE GLUCOSE (UA) 1+ (NEGATIVE); URINE KETONE NEGATIVE (NEGATIVE); URINE LEUK ESTERASE NEGATIVE (NEGATIVE); URINE NITRITE NEGATIVE (NEGATIVE); URINE PROTEIN NEGATIVE (NEGATIVE); URINE UROBILINOGEN NEGATIVE mg/dL (0.2-1.0)
[2017-04-16] MEDS: THIAMINE HCL 100 MG TABLET (FP) PO SCH (22:56)
[2017-04-17] MEDS: PANTOPRAZOLE 40 MG TABLET (FP) PO SCH (07:23)
[2017-04-17] MEDS: sitaGLIPtin PHOSPHATE 100 MG TABLET (FP) PO SCH (07:23)
[2017-04-17] MEDS: metFORMIN HCL 500 MG TABLET (FP) PO SCH ×2 (07:23→17:15)
[2017-04-17] MEDS: chlordiazePOXIDE HCL 25 MG CAPSULE PO SCH ×4 (07:27→22:39)
--- NOTE | 2017-04-17 09:07 | EKG ---
Test Reason : Blood Pressure : / mmHG Vent. Rate : 054 BPM Atrial Rate : 054 BPM P-R Int : 166 ms QRS Dur : 082 ms QT Int : 442 ms P-R-T Axes : 073 060 -22 degrees QTc Int : 419 ms SINUS BRADYCARDIA T WAVE ABNORMALITY, CONSIDER LATERAL ISCHEMIA ABNORMAL ECG WHEN COMPARED WITH ECG OF 16-JAN-2017 16:21, INVERTED T WAVES HAVE REPLACED NONSPECIFIC T WAVE ABNORMALITY IN LATERAL LEADS Confirmed by MARIZOL LEVY MD ([id number]) on 04/17/2017 9:07:06 AM Referred By: Confirmed By:MARIZOL LEVY MD
[2017-04-17 09:43] LABS: MCH 28.8 pg (25.7-33.7); MCHC 32.2 g/dl (32.0-35.9); MEAN CELL VOLUME 89.4 fl (80-96); MEAN PLT VOLUME 8.5 fl (7.5-11.1); PLATELET COUNT 311 K/MM3 (134-434); RDW 15.8 % (11.9-15.9); WHITE BLOOD COUNT 4.4 K/mm3 (4.0-10.0)
--- NOTE | 2017-04-17 10:38 | PN ---
[facility] CIWA - CIWA Score Nausea/Vomitin-No Nausea/No Vomiting Muscle Tremors: 4-Moderate,w/Arms Extend Anxiety: 4-Mod. Anxious/Guarded Agitation: 4-Moderately Restless Paroxysmal Sweats: 1-Minimal Palms Moist Orientation: 0-Oriented Tacttile Disturbances: 3-Moderate Itch/Numb/Burn Auditory Disturbances: 0-None Visual Disturbances: 0-None Headache: 0-None Present CIWA-Ar Total Score: 16 BHS Progress Note (SOAP) Subjective: ANXIETY,SWEATS,FATIGUE. Objective: 04/17/17 10:38 Vital Signs Temperature 98.0 F 04/17/17 10:14 Pulse Rate 84 04/17/17 10:14 Respiratory Rate 18 04/17/17 10:14 Blood Pressure 115/78 04/17/17 10:14 O2 Sat by Pulse Oximetry (%) Laboratory Last Values WBC 4.4 K/mm3 (4.0-10.0) 04/17/17 06:00 RBC 5.12 M/mm3 (4.00-5.60) 04/17/17 06:00 Hgb 14.7 GM/dL (11.7-16.9) 04/17/17 06:00 Hct 45.7 % (35.4-49) 04/17/17 06:00 MCV 89.4 fl (80-96) 04/17/17 06:00 MCH 28.8 pg (25.7-33.7) 04/17/17 06:00 MCHC 32.2 g/dl (32.0-35.9) 04/17/17 06:00 RDW 15.8 % (11.9-15.9) D 04/17/17 06:00 Plt Count 311 K/MM3 (134-434) D 04/17/17 06:00 MPV 8.5 fl (7.5-11.1) 04/17/17 06:00 POC Glucometer 96 UNITS (()) 04/17/17 06:50 Urine Color Yellow 04/16/17 16:00 Urine Appearance Clear 04/16/17 16:00 Urine pH 5.0 (5.0-8.0) 04/16/17 16:00 Ur Specific [place] 1.025 (1.005-1.025) 04/16/17 16:00 Urine Protein Negative (NEGATIVE) 04/16/17 16:00 Urine Glucose (UA) 1+ (NEGATIVE) H 04/16/17 16:00 Urine Ketones Negative (NEGATIVE) 04/16/17 16:00 Urine Blood Negative (NEGATIVE) 04/16/17 16:00 Urine Nitrite Negative (NEGATIVE) 04/16/17 16:00 Urine Bilirubin Negative (NEGATIVE) 04/16/17 16:00 Urine Urobilinogen Negative mg/dL (0.2-1.0) 04/16/17 16:00 Ur Leukocyte Esterase Negative (NEGATIVE) 04/16/17 16:00 LABS NOTED Assessment: 04/17/17 10:40 WITHDRAWAL SX Plan: CONTINUE DETOX
[2017-04-17 10:58] LABS: ALBUMIN 3.4 g/dl (3.4-5.0); ALK PHOS 84 U/L (45-117); ANION GAP 8 (8-16); BILIRUBIN,TOTAL 0.7 mg/dL (0.2-1.0); CALCIUM 9.3 mg/dL (8.5-10.1); CO2 31 mmol/L (21-32); CREATININE 1.1 mg/dL (0.7-1.3); GLUCOSE,RANDOM 139 mg/dL (74-106); SGOT/AST 20 U/L (15-37); SGPT/ALT 24 U/L (12-78); TOT PROT 7.3 g/dl (6.4-8.2)
[2017-04-17] MEDS: ASPIRIN 81 MG CHEWABLE TABLETS PO SCH (11:00)
[2017-04-17] MEDS: NICOTINE 21 MG/24 HOURS TOPICAL PATCH TD SCH (11:01)
[2017-04-17] MEDS: PRENATAL VITAMINS W/ FOLIC ACID TABLET (FP) PO SCH (11:01)
[2017-04-17] MEDS: THIAMINE HCL 100 MG TABLET (FP) PO SCH (22:39)
[2017-04-18] MEDS: chlordiazePOXIDE HCL 25 MG CAPSULE PO SCH ×2 (06:10→13:44)
[2017-04-18] MEDS: PANTOPRAZOLE 40 MG TABLET (FP) PO SCH (08:01)
[2017-04-18] MEDS: metFORMIN HCL 500 MG TABLET (FP) PO SCH ×2 (08:01→17:53)
[2017-04-18] MEDS: sitaGLIPtin PHOSPHATE 100 MG TABLET (FP) PO SCH (08:01)
--- NOTE | 2017-04-18 09:31 | EKG ---
Test Reason : Blood Pressure : / mmHG Vent. Rate : 070 BPM Atrial Rate : 070 BPM P-R Int : 156 ms QRS Dur : 088 ms QT Int : 408 ms P-R-T Axes : 077 072 012 degrees QTc Int : 440 ms NORMAL SINUS RHYTHM NONSPECIFIC T WAVE ABNORMALITY ABNORMAL ECG Confirmed by MD VALENTIN, ANDREY ([id number]) on 04/18/2017 9:31:16 AM Referred By: Confirmed By:ANDREY HANSON MD
[2017-04-18] MEDS: NICOTINE 21 MG/24 HOURS TOPICAL PATCH TD SCH (10:44)
[2017-04-18] MEDS: PRENATAL VITAMINS W/ FOLIC ACID TABLET (FP) PO SCH (10:44)
[2017-04-18] MEDS: ASPIRIN 81 MG CHEWABLE TABLETS PO SCH (10:44)
[2017-04-18] MEDS ORDERED: BACITRACIN 0.9 GM PACKET ONE (12:52)
[2017-04-18] MEDS: BACITRACIN 15 GM TUBE TOPICAL OINTMENT TP SCH ×2 (13:20→22:28)
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
[2017-04-18] MEDS: chlordiazePOXIDE 5 MG CAPSULE PO SCH ×2 (17:53→22:28)
[2017-04-18] MEDS: IBUPROFEN 400 MG TABLET (FP) PO PRN (18:36)
[2017-04-18] MEDS ORDERED: BENZOCAINE 28 GM HEMORRHOIDAL OINTMENT PR PRN (21:47)
[2017-04-18] MEDS: THIAMINE HCL 100 MG TABLET (FP) PO SCH (22:27)
[2017-04-19] MEDS: IBUPROFEN 400 MG TABLET (FP) PO PRN (01:41)
[2017-04-19] MEDS: chlordiazePOXIDE 5 MG CAPSULE PO SCH ×2 (06:29→10:50)
[2017-04-19] MEDS: sitaGLIPtin PHOSPHATE 100 MG TABLET (FP) PO SCH (07:55)
[2017-04-19] MEDS: metFORMIN HCL 500 MG TABLET (FP) PO SCH ×2 (07:55→17:56)
[2017-04-19] MEDS: PANTOPRAZOLE 40 MG TABLET (FP) PO SCH (07:55)
[2017-04-19] MEDS: ASPIRIN 81 MG CHEWABLE TABLETS PO SCH (10:49)
[2017-04-19] MEDS: PRENATAL VITAMINS W/ FOLIC ACID TABLET (FP) PO SCH (10:50)
[2017-04-19] MEDS: BACITRACIN 15 GM TUBE TOPICAL OINTMENT TP SCH ×2 (10:50→22:50)
[2017-04-19] MEDS: NICOTINE 21 MG/24 HOURS TOPICAL PATCH TD SCH (10:54)
[2017-04-19] MEDS ORDERED: BENZOCAINE 28 GM HEMORRHOIDAL OINTMENT PR PRN (11:17)
--- NOTE | 2017-04-19 14:20 | PN ---
BHS Progress Note (SOAP) Subjective: Tremor, chills, interrupted sleep, diarrhea; c/o hemorrhoidal pain with itching/ burning x 2 days Objective: 04/19/17 14:17 Last Vital Signs Temp Pulse Resp BP Pulse Ox 97.0 F L 89 18 138/92 04/19/17 13:11 04/19/17 13:11 04/19/17 13:11 04/19/17 13:11 Laboratory Tests 04/16/17 04/16/17 04/16/17 11:16 16:00 16:36 WBC RBC Hgb Hct MCV MCH MCHC RDW Plt Count MPV Sodium Potassium Chloride Carbon Dioxide Anion Gap BUN Creatinine Creat Clearance w eGFR POC Glucometer 170 115 Random Glucose Calcium Total Bilirubin AST ALT Alkaline Phosphatase Total Protein Albumin Urine Color Yellow Urine Appearance Clear Urine pH 5.0 Ur Specific [place] 1.025 Urine Protein Negative Urine Glucose (UA) 1+ H Urine Ketones Negative Urine Blood Negative Urine Nitrite Negative Urine Bilirubin Negative Urine Urobilinogen Negative Ur Leukocyte Esterase Negative RPR Titer 04/17/17 04/17/17 04/17/17 06:00 06:00 06:00 WBC 4.4 RBC 5.12 Hgb 14.7 Hct 45.7 MCV 89.4 MCH 28.8 MCHC 32.2 RDW 15.8 D Plt Count 311 D MPV 8.5 Sodium 141 Potassium 3.6 Chloride 102 Carbon Dioxide 31 Anion Gap 8 BUN 13 Creatinine 1.1 Creat Clearance w eGFR > 60 POC Glucometer Random Glucose 139 H D Calcium 9.3 Total Bilirubin 0.7 D AST 20 ALT 24 D Alkaline Phosphatase 84 D Total Protein 7.3 Albumin 3.4 Urine Color Urine Appearance Urine pH Ur Specific [place] Urine Protein Urine Glucose (UA) Urine Ketones Urine Blood Urine Nitrite Urine Bilirubin Urine Urobilinogen Ur Leukocyte Esterase RPR Titer Nonreactive 04/17/17 04/17/17 04/18/17 06:50 16:27 06:49 WBC RBC Hgb Hct MCV MCH MCHC RDW Plt Count MPV Sodium Potassium Chloride Carbon Dioxide Anion Gap BUN Creatinine Creat Clearance w eGFR POC Glucometer 96 91 81 Random Glucose Calcium Total Bilirubin AST ALT Alkaline Phosphatase Total Protein Albumin Urine Color Urine Appearance Urine pH Ur Specific [place] Urine Protein Urine Glucose (UA) Urine Ketones Urine Blood Urine Nitrite Urine Bilirubin Urine Urobilinogen Ur Leukocyte Esterase RPR Titer 04/18/17 04/19/17 17:11 06:13 WBC RBC Hgb Hct MCV MCH MCHC RDW Plt Count MPV Sodium Potassium Chloride Carbon Dioxide Anion Gap BUN Creatinine Creat Clearance w eGFR POC Glucometer 170 94 Random Glucose Calcium Total Bilirubin AST ALT Alkaline Phosphatase Total Protein Albumin Urine Color Urine Appearance Urine pH Ur Specific [place] Urine Protein Urine Glucose (UA) Urine Ketones Urine Blood Urine Nitrite Urine Bilirubin Urine Urobilinogen Ur Leukocyte Esterase RPR Titer Labs noted Assessment: 04/19/17 14:18 Withdrawal symptoms c/o hemorrhoidal discomfort Plan: Continue detox Hemorrhoid: continue benzocaine q6hr prn, start anusol cream bid, recommends sitz bath at home and to follow up with his PCP post discharge for further management
[2017-04-19] MEDS: HYDROCORTISONE 2.5% TOPICAL CREAM 30 GM TUBE PR SCH ×2 (17:00→22:50)
[2017-04-19] MEDS: chlordiazePOXIDE HCL 10 MG CAPSULE PO SCH ×2 (17:56→22:50)
[2017-04-19 22:09] VITALS: BP 105/72; PULSE 67; TEMP 99
[2017-04-19] MEDS: THIAMINE HCL 100 MG TABLET (FP) PO SCH (22:51)
[2017-04-20] MEDS: chlordiazePOXIDE HCL 10 MG CAPSULE PO SCH (06:12)
[2017-04-20] MEDS: sitaGLIPtin PHOSPHATE 100 MG TABLET (FP) PO SCH (07:36)
[2017-04-20] MEDS: metFORMIN HCL 500 MG TABLET (FP) PO SCH (07:36)
[2017-04-20] MEDS: PANTOPRAZOLE 40 MG TABLET (FP) PO SCH (07:37)
--- NOTE | 2017-04-20 09:40 | DS ---
[facility] Detox Discharge Summary Admission Date: 04/16/17 Discharge Date: 04/20/17 - History Present History: Alcohol Dependence, Cocaine Dependence, Opioid Dependence, Pcp Dependence Pertinent Past History: GERD, asthma, nicotine dependence, anxiety, depression, insomnia, DM, opioid and pcp abuse in past - Physical Exam Results Vital Signs: Vital Signs Temperature 99.0 F 04/19/17 22:08 Pulse Rate 67 04/19/17 22:08 Respiratory Rate 18 04/20/17 06:22 Blood Pressure 105/72 04/19/17 22:08 O2 Sat by Pulse Oximetry (%) Laboratory Tests 04/16/17 04/16/17 04/16/17 11:16 16:00 16:36 WBC RBC Hgb Hct MCV MCH MCHC RDW Plt Count MPV Sodium Potassium Chloride Carbon Dioxide Anion Gap BUN Creatinine Creat Clearance w eGFR POC Glucometer 170 115 Random Glucose Calcium Total Bilirubin AST ALT Alkaline Phosphatase Total Protein Albumin Urine Color Yellow Urine Appearance Clear Urine pH 5.0 Ur Specific [place] 1.025 Urine Protein Negative Urine Glucose (UA) 1+ H Urine Ketones Negative Urine Blood Negative Urine Nitrite Negative Urine Bilirubin Negative Urine Urobilinogen Negative Ur Leukocyte Esterase Negative RPR Titer 04/17/17 04/17/17 04/17/17 06:00 06:00 06:00 WBC 4.4 RBC 5.12 Hgb 14.7 Hct 45.7 MCV 89.4 MCH 28.8 MCHC 32.2 RDW 15.8 D Plt Count 311 D MPV 8.5 Sodium 141 Potassium 3.6 Chloride 102 Carbon Dioxide 31 Anion Gap 8 BUN 13 Creatinine 1.1 Creat Clearance w eGFR > 60 POC Glucometer Random Glucose 139 H D Calcium 9.3 Total Bilirubin 0.7 D AST 20 ALT 24 D Alkaline Phosphatase 84 D Total Protein 7.3 Albumin 3.4 Urine Color Urine Appearance Urine pH Ur Specific [place] Urine Protein Urine Glucose (UA) Urine Ketones Urine Blood Urine Nitrite Urine Bilirubin Urine Urobilinogen Ur Leukocyte Esterase RPR Titer Nonreactive 04/17/17 04/17/17 04/18/17 06:50 16:27 06:49 WBC RBC Hgb Hct MCV MCH MCHC RDW Plt Count MPV Sodium Potassium Chloride Carbon Dioxide Anion Gap BUN Creatinine Creat Clearance w eGFR POC Glucometer 96 91 81 Random Glucose Calcium Total Bilirubin AST ALT Alkaline Phosphatase Total Protein Albumin Urine Color Urine Appearance Urine pH Ur Specific [place] Urine Protein Urine Glucose (UA) Urine Ketones Urine Blood Urine Nitrite Urine Bilirubin Urine Urobilinogen Ur Leukocyte Esterase RPR Titer 04/18/17 04/19/17 04/19/17 17:11 06:13 16:28 WBC RBC Hgb Hct MCV MCH MCHC RDW Plt Count MPV Sodium Potassium Chloride Carbon Dioxide Anion Gap BUN Creatinine Creat Clearance w eGFR POC Glucometer 170 94 165 Random Glucose Calcium Total Bilirubin AST ALT Alkaline Phosphatase Total Protein Albumin Urine Color Urine Appearance Urine pH Ur Specific [place] Urine Protein Urine Glucose (UA) Urine Ketones Urine Blood Urine Nitrite Urine Bilirubin Urine Urobilinogen Ur Leukocyte Esterase RPR Titer 04/20/17 05:41 WBC RBC Hgb Hct MCV MCH MCHC RDW Plt Count MPV Sodium Potassium Chloride Carbon Dioxide Anion Gap BUN Creatinine Creat Clearance w eGFR POC Glucometer 114 Random Glucose Calcium Total Bilirubin AST ALT Alkaline Phosphatase Total Protein Albumin Urine Color Urine Appearance Urine pH Ur Specific [place] Urine Protein Urine Glucose (UA) Urine Ketones Urine Blood Urine Nitrite Urine Bilirubin Urine Urobilinogen Ur Leukocyte Esterase RPR Titer Pertinent Admission Physical Exam Findings: withdrawal sx - Treatment Hospital Course: Detox Protocol Followed, Detoxed Safely, Responded well, Discharged Condition Good, Rehab Referral Accepted Patient has Accepted a Rehab Referral to: Yes - Medication Discharge Medications: Ambulatory Orders Albuterol Sulfate Inhaler - [Ventolin HFA Inhaler -] 2 inh IH Q4H PRN 10/19/12 Aspirin [ASA -] 81 mg PO DAILY #30 tab.chew 07/12/15 Metformin HCl [Glucophage] 1,000 mg PO BID 01/16/17 Pantoprazole Sodium [Protonix -] 40 mg PO AM 01/16/17 Sitagliptin Phosphate [Januvia] 100 mg PO AM 01/16/17 Fluoxetine HCl [Prozac] 20 mg PO DAILY #30 capsule 01/17/17 Risperidone [Risperdal] 3 mg PO HS #30 tablet 01/17/17 - Diagnosis (1) Alcohol dependence with uncomplicated withdrawal Current Visit: Yes Status: Chronic (2) Asthma Current Visit: Yes Status: Chronic Qualifiers: Asthma severity: mild intermittent (3) Cocaine dependence Current Visit: Yes Status: Chronic Qualifiers: Substance use status: uncomplicated Qualified Code(s): F14.20 - Cocaine dependence, uncomplicated (4) DM Diabetes mellitus type 2 Current Visit: Yes Status: Chronic (5) GERD (gastroesophageal reflux disease) Current Visit: Yes Status: Chronic Qualifiers: Esophagitis presence: without esophagitis Qualified Code(s): K21.9 - Gastro-esophageal reflux disease without esophagitis (6) Nicotine dependence Current Visit: Yes Status: Chronic Qualifiers: Nicotine product type: cigarettes Substance use status: uncomplicated Qualified Code(s): F17.210 - Nicotine dependence, cigarettes, uncomplicated (7) Diabetes Current Visit: No Status: Chronic Qualifiers: Diabetes mellitus type: type 2 Diabetes mellitus complication status: with unspecified complications (8) Low back pain Current Visit: No Status: Chronic (9) PCP (phencyclidine) abuse Current Visit: No Status: Inactive (10) Schizophrenia Current Visit: Yes Status: Chronic (11) Seizure Current Visit: No Status: Inactive (12) Drug-induced mood disorder Current Visit: Yes Status: Acute - AMA Did Patient Leave Against Medical Advice: No
== END 2017-04-20 10:05 | disposition home or self-care (01) | DRG 774 ==
LOC: YASAS 10:26 → Y3N 14:14
PROVIDERS: ADMIT Internal Medicine Addiction Medicine; ATTEND Internal Medicine Addiction Medicine
PROC: HZ2ZZZZ Detoxification Services for Substance Abuse Treatment (ICD-10-PCS; principal; 2017-04-16)
DX: F10.230 Alcohol dependence with withdrawal, uncomplicated (principal); F14.20 Cocaine dependence, uncomplicated; F16.10 Hallucinogen abuse, uncomplicated; F17.210 Nicotine dependence, cigarettes, uncomplicated; F19.24 Other psychoactive substance dependence with psychoactive substance-induced mood disorder; F20.9 Schizophrenia, unspecified; F41.8 Other specified anxiety disorders; J45.20 Mild intermittent asthma, uncomplicated; K21.9 Gastro-esophageal reflux disease without esophagitis; E11.9 Type 2 diabetes mellitus without complications; M54.5 Low back pain; G89.29 Other chronic pain; K64.8 Other hemorrhoids; Z86.69 Personal history of other diseases of the nervous system and sense organs; Z91.14 Patient's other noncompliance with medication regimen; Z79.84 Long term (current) use of oral hypoglycemic drugs
CPT/HCPCS: 36415; 80053; 81003; 85027; 86593; 93005; 93010

== ENCOUNTER 2022-03-25 07:57 | Inpatient (IN) | payer OTHER ==
[2022-03-25 09:25] VITALS: BMI 29.7
[2022-03-25] MEDS ORDERED: ONDANSETRON *ODT* 4 MG TABLET SL PRN (10:24)
[2022-03-25] MEDS ORDERED: IBUPROFEN 600 MG TABLET (FP) PO PRN (10:24)
[2022-03-25] MEDS ORDERED: DICYCLOMINE HCL 10 MG CAPSULE PO PRN (10:24)
[2022-03-25] MEDS ORDERED: ACETAMINOPHEN 325 MG TABLET (FP) PO PRN ×2 (10:24)
[2022-03-25] MEDS ORDERED: IBUPROFEN 400 MG TABLET (FP) PO PRN (10:24)
[2022-03-25] MEDS ORDERED: BISMUTH SUBSALICYLATE 262 MG/15 ML BTL PO PRN (10:24)
[2022-03-25] MEDS ORDERED: LOPERAMIDE HCL 2 MG CAPSULE PO PRN (10:24)
[2022-03-25] MEDS ORDERED: METHOCARBAMOL 500 MG TABLET PO PRN (10:24)
[2022-03-25] MEDS ORDERED: MAGNESIUM CITRATE 300 ML BOTTLE PO PRN (10:24)
[2022-03-25] MEDS ORDERED: NICOTINE 10 MG CARTRIDGE (INHALER) IH PRN (10:24)
[2022-03-25] MEDS ORDERED: MAG HYDROX/AL HYDROX/SIMETH 30 ML UNIT-DOSE CUP PO PRN (10:24)
[2022-03-25] MEDS ORDERED: MAGNESIUM HYDROX 2400MG/30ML ORAL SUSPENSION 30 ML CUP PO PRN (10:24)
[2022-03-25] MEDS ORDERED: BENZOCAINE/MENTHOL (CHLORASEPTIC ) LOZENGE MM PRN (10:24)
[2022-03-25] MEDS ORDERED: chlordiazePOXIDE HCL 25 MG CAPSULE PO PRN (10:24)
[2022-03-25] MEDS: chlordiazePOXIDE HCL 25 MG CAPSULE PO SCH ×3 (11:06→22:49)
[2022-03-25] MEDS: PRENATAL VITAMINS W/ FOLIC ACID TABLET (FP) PO SCH (11:08)
[2022-03-25] MEDS: NICOTINE 21 MG/24 HOURS TOPICAL PATCH TD SCH (11:09)
[2022-03-25] MEDS ORDERED: ALBUTEROL SO4 HFA INHALER IH PRN (12:31)
[2022-03-25] MEDS: hydrOXYzine PAMOATE 25 MG CAPSULE (FP) PO SCH ×3 (14:04→22:48)
[2022-03-25 15:51] LABS: HEMATOCRIT 40.1 % (35.4-49); HEMOGLOBIN 13.2 GM/dL (11.7-16.9); MCH 28.7 pg (25.7-33.7); MEAN PLT VOLUME 8.2 fl (7.5-11.1); PLATELET COUNT 315 10^3/uL (134-434); RBC 4.61 M/mm3 (4.00-5.60); RDW 15.2 % (11.9-15.9); WHITE BLOOD COUNT 4.5 K/mm3 (4.0-10.0)
[2022-03-25 16:09] LABS: CHLORIDE 102 mmol/L (98-107); SODIUM 139 mmol/L (136-145)
[2022-03-25 16:12] LABS: CALCIUM 8.8 mg/dL (8.5-10.1)
[2022-03-25 16:13] LABS: ANION GAP 10 MMOL/L (8-16); BLOOD UREA NITROGEN 7.3 mg/dL (7-18); CO2 28 mmol/L (21-32)
[2022-03-25 16:16] LABS: CREATININE 1.3 mg/dL (0.55-1.3); SGOT/AST 38 U/L (15-37); SGPT/ALT 28 U/L (13-61)
[2022-03-25 16:18] LABS: BILIRUBIN,TOTAL 0.2 mg/dL (0.2-1); TOT PROT 6.2 g/dl (6.4-8.2)
[2022-03-25 16:19] LABS: ALK PHOS 98 U/L (45-117)
[2022-03-25 16:20] LABS: GLUCOSE,RANDOM 455 mg/dL (74-106)
[2022-03-25] MEDS: INSULIN SLIDING SCALE (NOVOLOG) 1 VIAL SQ SCH (17:16)
[2022-03-25] MEDS: MELATONIN 5 MG TABLETS PO SCH (22:48)
[2022-03-25] MEDS: DIVALPROEX SODIUM 500 MG TABLET E.C. PO SCH (22:48)
[2022-03-25] MEDS: THIAMINE HCL 100 MG TABLET (FP) PO SCH (22:48)
[2022-03-25] MEDS: INSULIN (LEVEMIR) 100 UNITS/ML UNITS SQ SCH (22:51)
[2022-03-26] MEDS: chlordiazePOXIDE HCL 25 MG CAPSULE PO SCH ×4 (06:18→22:08)
[2022-03-26] MEDS: hydrOXYzine PAMOATE 25 MG CAPSULE (FP) PO SCH ×5 (06:19→22:07)
[2022-03-26] MEDS: INSULIN SLIDING SCALE (NOVOLOG) 1 VIAL SQ SCH ×4 (07:20→19:30)
[2022-03-26] MEDS ORDERED: INSULIN SLIDING SCALE (NOVOLOG) 1 VIAL SQ ONE (07:23)
[2022-03-26] MEDS: HYDROCHLOROTHIAZIDE 12.5 MG CAPSULE (FP) PO SCH (11:16)
[2022-03-26] MEDS: NICOTINE 21 MG/24 HOURS TOPICAL PATCH TD SCH (11:16)
[2022-03-26] MEDS: DIVALPROEX SODIUM 500 MG TABLET E.C. PO SCH ×2 (11:16→22:07)
[2022-03-26] MEDS: PRENATAL VITAMINS W/ FOLIC ACID TABLET (FP) PO SCH (11:16)
[2022-03-26 17:46] VITALS: BP 121/69; PULSE 82; RESP 18; TEMP 97.3
[2022-03-26] MEDS: INSULIN (LEVEMIR) 100 UNITS/ML UNITS SQ SCH ×2 (19:33→22:16)
[2022-03-26] MEDS: MELATONIN 5 MG TABLETS PO SCH (22:07)
[2022-03-26] MEDS: THIAMINE HCL 100 MG TABLET (FP) PO SCH (22:08)
[2022-03-27] MEDS: chlordiazePOXIDE HCL 25 MG CAPSULE PO SCH ×2 (06:45→10:41)
[2022-03-27] MEDS: hydrOXYzine PAMOATE 25 MG CAPSULE (FP) PO SCH ×3 (06:45→14:20)
[2022-03-27] MEDS: INSULIN SLIDING SCALE (NOVOLOG) 1 VIAL SQ SCH ×2 (06:46→10:42)
[2022-03-27] MEDS: PRENATAL VITAMINS W/ FOLIC ACID TABLET (FP) PO SCH (10:41)
[2022-03-27] MEDS: DIVALPROEX SODIUM 500 MG TABLET E.C. PO SCH (10:41)
[2022-03-27] MEDS: HYDROCHLOROTHIAZIDE 12.5 MG CAPSULE (FP) PO SCH (10:41)
[2022-03-27] MEDS: NICOTINE 21 MG/24 HOURS TOPICAL PATCH TD SCH (10:41)
[2022-03-28] MEDS ORDERED: chlordiazePOXIDE HCL 10 MG CAPSULE PO PRN
[2022-03-28] MEDS ORDERED: chlordiazePOXIDE HCL 10 MG CAPSULE PO SCH (05:00)
[2022-03-29] MEDS ORDERED: chlordiazePOXIDE HCL 10 MG CAPSULE PO SCH (05:00)
[2022-03-30] MEDS ORDERED: chlordiazePOXIDE HCL 10 MG CAPSULE PO ONE (05:00)
== END 2022-03-27 12:55 | disposition left against medical advice (07) | DRG 770 ==
LOC: YASAS 07:57 → Y3N 10:14
PROVIDERS: ADMIT Allergy & Immunology; ATTEND Surgery
PROC: HZ2ZZZZ Detoxification Services for Substance Abuse Treatment (ICD-10-PCS; principal; 2022-03-25)
DX: F10.230 Alcohol dependence with withdrawal, uncomplicated (principal); F14.20 Cocaine dependence, uncomplicated; F16.20 Hallucinogen dependence, uncomplicated; F17.210 Nicotine dependence, cigarettes, uncomplicated; F20.9 Schizophrenia, unspecified; I10 Essential (primary) hypertension; J45.20 Mild intermittent asthma, uncomplicated; K21.9 Gastro-esophageal reflux disease without esophagitis; E11.65 Type 2 diabetes mellitus with hyperglycemia; Z79.4 Long term (current) use of insulin
CPT/HCPCS: 36415; 80053; 82962; 85027; 86780; C9803-CS; U0003; U0005

== ENCOUNTER 2022-04-04 08:40 | Inpatient (IN) | payer OTHER ==
[2022-04-04 10:09] VITALS: BMI 29.7
[2022-04-04] MEDS ORDERED: ACETAMINOPHEN 325 MG TABLET (FP) PO PRN ×2 (11:33)
[2022-04-04] MEDS ORDERED: MAGNESIUM HYDROX 2400MG/30ML ORAL SUSPENSION 30 ML CUP PO PRN (11:33)
[2022-04-04] MEDS ORDERED: NICOTINE 10 MG CARTRIDGE (INHALER) IH PRN (11:33)
[2022-04-04] MEDS ORDERED: cloNIDine HCL 0.1 MG TABLET PO PRN (11:33)
[2022-04-04] MEDS ORDERED: LOPERAMIDE HCL 2 MG CAPSULE PO PRN (11:33)
[2022-04-04] MEDS ORDERED: NICOTINE POLACRILEX 2 MG GUM BUC PRN (11:33)
[2022-04-04] MEDS ORDERED: IBUPROFEN 400 MG TABLET (FP) PO PRN (11:33)
[2022-04-04] MEDS ORDERED: MAGNESIUM CITRATE 300 ML BOTTLE PO PRN (11:33)
[2022-04-04] MEDS ORDERED: BISMUTH SUBSALICYLATE 524 MG/30 ML PO PRN (11:33)
[2022-04-04] MEDS ORDERED: MAG HYDROX/AL HYDROX/SIMETH 30 ML UNIT-DOSE CUP PO PRN (11:33)
[2022-04-04] MEDS ORDERED: DICYCLOMINE HCL 10 MG CAPSULE PO PRN (11:33)
[2022-04-04] MEDS ORDERED: ONDANSETRON *ODT* 4 MG TABLET SL PRN (11:33)
[2022-04-04] MEDS ORDERED: chlordiazePOXIDE HCL 25 MG CAPSULE PO PRN (11:33)
[2022-04-04] MEDS ORDERED: BENZOCAINE/MENTHOL (CHLORASEPTIC ) LOZENGE MM PRN (11:33)
[2022-04-04] MEDS ORDERED: ALBUTEROL SO4 HFA INHALER IH PRN (11:36)
[2022-04-04] MEDS ORDERED: FLUoxetine HCL 20 MG CAPSULE PO SCH (11:45)
[2022-04-04] MEDS ORDERED: methaDONE HCL 10 MG TABLET (FOR DETOX USE ONLY) PO ONE (12:15)
[2022-04-04] MEDS: PRENATAL VITAMINS W/ FOLIC ACID TABLET (FP) PO SCH (13:39)
[2022-04-04] MEDS: DIVALPROEX SODIUM 250 MG TABLET E.C. PO SCH ×2 (13:39→23:42)
[2022-04-04] MEDS: chlordiazePOXIDE HCL 25 MG CAPSULE PO SCH ×3 (13:39→23:44)
[2022-04-04] MEDS: hydrOXYzine PAMOATE 25 MG CAPSULE (FP) PO SCH ×3 (13:44→23:44)
[2022-04-04 14:24] LABS: HEMATOCRIT 39.9 % (35.4-49); HEMOGLOBIN 12.8 GM/dL (11.7-16.9); MCH 28.3 pg (25.7-33.7); MCHC 32.2 g/dl (32.0-35.9); MEAN CELL VOLUME 88.1 fl (80-96); MEAN PLT VOLUME 7.8 fl (7.5-11.1); PLATELET COUNT 285 10^3/uL (134-434); RBC 4.52 M/mm3 (4.00-5.60); RDW 15.3 % (11.9-15.9); WHITE BLOOD COUNT 4.3 K/mm3 (4.0-10.0)
[2022-04-04 15:07] LABS: ALBUMIN 2.8 g/dl (3.4-5.0); BLOOD UREA NITROGEN 11.5 mg/dL (7-18); CALCIUM 8.6 mg/dL (8.5-10.1)
[2022-04-04 15:10] LABS: CREATININE 1.2 mg/dL (0.55-1.3)
[2022-04-04 15:12] LABS: BILIRUBIN,TOTAL 0.5 mg/dL (0.2-1); TOT PROT 6.1 g/dl (6.4-8.2)
[2022-04-04] MEDS: INSULIN (LEVEMIR) 100 UNITS/ML UNITS SQ SCH (23:42)
[2022-04-04] MEDS: MELATONIN 5 MG TABLETS PO SCH (23:44)
[2022-04-04] MEDS: THIAMINE HCL 100 MG TABLET (FP) PO SCH (23:45)
[2022-04-05] MEDS: hydrOXYzine PAMOATE 25 MG CAPSULE (FP) PO SCH ×5 (05:36→21:24)
[2022-04-05] MEDS: chlordiazePOXIDE HCL 25 MG CAPSULE PO SCH ×4 (05:36→22:37)
[2022-04-05] MEDS: METHOCARBAMOL 500 MG TABLET PO PRN (05:38)
[2022-04-05] MEDS: IBUPROFEN 600 MG TABLET (FP) PO PRN ×2 (05:38→20:05)
[2022-04-05] MEDS: PRENATAL VITAMINS W/ FOLIC ACID TABLET (FP) PO SCH (12:45)
[2022-04-05] MEDS: DIVALPROEX SODIUM 250 MG TABLET E.C. PO SCH ×2 (12:46→21:24)
[2022-04-05] MEDS: HYDROCHLOROTHIAZIDE 12.5 MG CAPSULE (FP) PO SCH (15:13)
[2022-04-05] MEDS: INSULIN (LEVEMIR) 100 UNITS/ML UNITS SQ SCH (21:23)
[2022-04-05] MEDS: MELATONIN 5 MG TABLETS PO SCH (21:24)
[2022-04-05] MEDS: THIAMINE HCL 100 MG TABLET (FP) PO SCH (21:24)
[2022-04-06] MEDS: hydrOXYzine PAMOATE 25 MG CAPSULE (FP) PO SCH ×5 (05:46→23:54)
[2022-04-06] MEDS: chlordiazePOXIDE HCL 25 MG CAPSULE PO SCH ×4 (05:47→23:54)
[2022-04-06] MEDS ORDERED: methaDONE HCL 10 MG TABLET (FOR DETOX USE ONLY) PO ONE (10:00)
[2022-04-06] MEDS: METHOCARBAMOL 500 MG TABLET PO PRN (10:33)
[2022-04-06] MEDS: HYDROCHLOROTHIAZIDE 12.5 MG CAPSULE (FP) PO SCH (10:33)
[2022-04-06] MEDS: PRENATAL VITAMINS W/ FOLIC ACID TABLET (FP) PO SCH (10:33)
[2022-04-06] MEDS: DIVALPROEX SODIUM 250 MG TABLET E.C. PO SCH ×2 (10:33→22:39)
[2022-04-06] MEDS ORDERED: CALCIUM 250MG/VIT-D 125 UNITS 1 COMBO TABLET PO SCH (12:00)
[2022-04-06] MEDS: THIAMINE HCL 100 MG TABLET (FP) PO SCH (22:39)
[2022-04-06] MEDS: INSULIN (LEVEMIR) 100 UNITS/ML UNITS SQ SCH (22:40)
[2022-04-06] MEDS: MELATONIN 5 MG TABLETS PO SCH (23:53)
[2022-04-07] MEDS ORDERED: chlordiazePOXIDE HCL 10 MG CAPSULE PO PRN
[2022-04-07] MEDS: METHOCARBAMOL 500 MG TABLET PO PRN (01:24)
[2022-04-07] MEDS: chlordiazePOXIDE HCL 10 MG CAPSULE PO SCH ×4 (05:22→22:24)
[2022-04-07] MEDS: hydrOXYzine PAMOATE 25 MG CAPSULE (FP) PO SCH ×5 (05:24→22:23)
[2022-04-07] MEDS: HYDROCHLOROTHIAZIDE 12.5 MG CAPSULE (FP) PO SCH (10:42)
[2022-04-07] MEDS: PRENATAL VITAMINS W/ FOLIC ACID TABLET (FP) PO SCH (10:43)
[2022-04-07] MEDS: DIVALPROEX SODIUM 250 MG TABLET E.C. PO SCH ×2 (10:43→22:23)
[2022-04-07] MEDS ORDERED: INSULIN SLIDING SCALE (NOVOLOG) 1 VIAL SQ PRN (21:00)
[2022-04-07 21:59] VITALS: RESP 18
[2022-04-07] MEDS: INSULIN (LEVEMIR) 100 UNITS/ML UNITS SQ SCH (22:22)
[2022-04-07] MEDS: MELATONIN 5 MG TABLETS PO SCH (22:22)
[2022-04-07] MEDS: THIAMINE HCL 100 MG TABLET (FP) PO SCH (22:23)
[2022-04-08] MEDS: chlordiazePOXIDE HCL 10 MG CAPSULE PO SCH ×2 (04:23→17:48)
[2022-04-08] MEDS: hydrOXYzine PAMOATE 25 MG CAPSULE (FP) PO SCH ×5 (08:31→23:28)
[2022-04-08] MEDS ORDERED: methaDONE HCL 10 MG TABLET (FOR DETOX USE ONLY) PO ONE (10:00)
[2022-04-08] MEDS: DIVALPROEX SODIUM 250 MG TABLET E.C. PO SCH ×2 (10:12→23:28)
[2022-04-08] MEDS: PRENATAL VITAMINS W/ FOLIC ACID TABLET (FP) PO SCH (10:14)
[2022-04-08] MEDS: HYDROCHLOROTHIAZIDE 12.5 MG CAPSULE (FP) PO SCH (10:16)
[2022-04-08] MEDS ORDERED: LISINOPRIL 10 MG TABLET PO ONE (13:11)
[2022-04-08] MEDS ORDERED: LISINOPRIL 10 MG TABLET PO SCH (13:30)
[2022-04-08] MEDS: METHOCARBAMOL 500 MG TABLET PO PRN (17:48)
[2022-04-08] MEDS ORDERED: INSULIN (NOVOLOG) ASPART 100 UNITS/ML 10ML VIAL ONE (21:57)
[2022-04-08] MEDS ORDERED: INSULIN SLIDING SCALE (NOVOLOG) 1 VIAL SQ SCH (22:00)
[2022-04-08] MEDS: INSULIN (LEVEMIR) 100 UNITS/ML UNITS SQ SCH (22:02)
[2022-04-08] MEDS: MELATONIN 5 MG TABLETS PO SCH (23:28)
[2022-04-08] MEDS: THIAMINE HCL 100 MG TABLET (FP) PO SCH (23:28)
[2022-04-09] MEDS ORDERED: chlordiazePOXIDE HCL 10 MG CAPSULE PO ONE (05:00)
[2022-04-09] MEDS: hydrOXYzine PAMOATE 25 MG CAPSULE (FP) PO SCH (06:18)
[2022-04-09 10:24] VITALS: BP 98/61; PULSE 76; TEMP 97.7
== END 2022-04-09 14:57 | disposition other institution (70) | DRG 774 ==
LOC: YASAS 08:40 → Y6N 11:58
PROVIDERS: ADMIT Allergy & Immunology; ATTEND Surgery
PROC: HZ2ZZZZ Detoxification Services for Substance Abuse Treatment (ICD-10-PCS; principal; 2022-04-04)
DX: F10.230 Alcohol dependence with withdrawal, uncomplicated (principal); F14.20 Cocaine dependence, uncomplicated; F16.10 Hallucinogen abuse, uncomplicated; F17.213 Nicotine dependence, cigarettes, with withdrawal; F31.81 Bipolar II disorder; F19.24 Other psychoactive substance dependence with psychoactive substance-induced mood disorder; F20.9 Schizophrenia, unspecified; I10 Essential (primary) hypertension; E11.9 Type 2 diabetes mellitus without complications; Z79.4 Long term (current) use of insulin; J45.20 Mild intermittent asthma, uncomplicated; R20.0 Anesthesia of skin; M62.81 Muscle weakness (generalized); K21.9 Gastro-esophageal reflux disease without esophagitis
CPT/HCPCS: 36415; 80053; 80164; 82962; 83036; 85027; 86780; 93005; 93010; C9803-CS; U0003; U0005

== ENCOUNTER 2022-04-08 22:42 | Emergency (ER) | payer OTHER ==
[2022-04-08 23:03] VITALS: BP 152/89; PULSE 89; RESP 16; TEMP 98.2; BMI 29.7
[2022-04-08 23:41] LABS: VENOUS BASE EXCESS 6.6 mmol/L (-2-2); VENOUS O2 SATURATION 59.6 % (70-80); VENOUS PH 7.392 (7.310-7.410)
[2022-04-08 23:53] LABS: INR 0.97 (0.83-1.09); PROTHROMBIN TIME (PATIENT) 11.2 SEC (9.7-13.0)
[2022-04-09 00:10] LABS: ALBUMIN 3.2 g/dl (3.4-5.0); CALCIUM 9.8 mg/dL (8.5-10.1)
[2022-04-09 00:11] LABS: MAGNESIUM 2.2 mg/dL (1.8-2.4)
[2022-04-09 00:14] LABS: CREATININE 1.2 mg/dL (0.55-1.3)
[2022-04-09 00:15] LABS: BILIRUBIN,TOTAL 0.3 mg/dL (0.2-1); TOT PROT 7.2 g/dl (6.4-8.2)
[2022-04-09 00:53] LABS: BASO % 1.3 % (0-2.0); EOS % 8.2 % (0-4.5); HEMOGLOBIN 13.8 GM/dL (11.7-16.9); LYMPH % 32.1 % (8-40); MCH 28.6 pg (25.7-33.7); MEAN CELL VOLUME 86.8 fl (80-96); MEAN PLT VOLUME 6.7 fl (7.5-11.1); NEUT % 47.4 % (42.8-82.8); PLATELET COUNT 261 10^3/uL (134-434); RBC 4.83 M/mm3 (4.00-5.60); RDW 14.9 % (11.9-15.9); WHITE BLOOD COUNT 5.4 K/mm3 (4.0-10.0)
[2022-04-09] MEDS ORDERED: INSULIN REGULAR HUMAN 100 UNITS/ML *VIAL SQ ONE (01:33)
[2022-04-09] MEDS ORDERED: INSULIN (NOVOLOG) ASPART 100 UNITS/ML 10ML VIAL ONE (01:41)
== END 2022-04-09 02:20 | disposition home or self-care (01) ==
LOC: JER 22:42
DX: E11.9 Type 2 diabetes mellitus without complications (principal); F19.10 Other psychoactive substance abuse, uncomplicated; R25.2 Cramp and spasm
CPT/HCPCS: 36415; 70450-TC; 80053; 80164; 82010; 82803; 82962; 83735; 84484; 85025; 85610; 85730; 93005; 93010; 93970-TC; 99285-25

== ENCOUNTER 2022-04-09 10:46 | Emergency (ER) | payer OTHER ==
[2022-04-09] MEDS ORDERED: SODIUM CHLORIDE 0.9% 1000 ML INFUS.BAG IV ONE (11:19)
[2022-04-09] MEDS ORDERED: NALOXONE HCL 0.4 MG/ML VIAL IVPUSH ONE (11:26)
[2022-04-09] MEDS ORDERED: INSULIN REGULAR HUMAN 100 UNITS/ML *VIAL IVPUSH ONE ×2 (11:27→11:29)
[2022-04-09] MEDS ORDERED: NALOXONE HCL 0.4 MG/ML VIAL ONE (11:28)
[2022-04-09] MEDS ORDERED: INSULIN REGULAR HUMAN 100 UNITS/ML *VIAL ONE (11:29)
[2022-04-09 11:46] VITALS: TEMP 98.6; BMI 21.1
[2022-04-09 11:52] LABS: EOS % 7.2 % (0-4.5); HEMATOCRIT 42.7 % (35.4-49); HEMOGLOBIN 14.3 GM/dL (11.7-16.9); LYMPH % 29.5 % (8-40); MCH 29.1 pg (25.7-33.7); MCHC 33.5 g/dl (32.0-35.9); MEAN CELL VOLUME 86.9 fl (80-96); MONO % 10.1 % (3.8-10.2); NEUT % 52.2 % (42.8-82.8); PLATELET COUNT 251 10^3/uL (134-434); RBC 4.91 M/mm3 (4.00-5.60); RDW 15.2 % (11.9-15.9); WHITE BLOOD COUNT 4.8 K/mm3 (4.0-10.0)
[2022-04-09 12:25] LABS: BLOOD UREA NITROGEN 7.9 mg/dL (7-18)
[2022-04-09 12:26] LABS: CALCIUM 9.5 mg/dL (8.5-10.1)
[2022-04-09 12:28] LABS: CREATININE 1.2 mg/dL (0.55-1.3)
[2022-04-09 12:29] LABS: BILIRUBIN,TOTAL 0.4 mg/dL (0.2-1)
[2022-04-09 12:33] LABS: TOT PROT 6.5 g/dl (6.4-8.2)
[2022-04-09 15:07] VITALS: BP 107/68; PULSE 80; RESP 20
== END 2022-04-09 15:11 | disposition home or self-care (01) ==
LOC: JER 10:46
PROC: 3E013VG Introduction of Insulin into Subcutaneous Tissue, Percutaneous Approach (ICD-10-PCS; principal; 2022-04-09)
PROC: 3E033NZ Introduction of Analgesics, Hypnotics, Sedatives into Peripheral Vein, Percutaneous Approach (ICD-10-PCS; 2022-04-09)
DX: F11.10 Opioid abuse, uncomplicated (principal); R73.9 Hyperglycemia, unspecified; R41.82 Altered mental status, unspecified
CPT/HCPCS: 70450-TC; 80053; 82010; 82962; 84484; 85025; 93005; 93010; 99285-25

== ENCOUNTER 2022-04-12 21:33 | Inpatient (IN) | payer OTHER ==
[2022-04-13] MEDS ORDERED: hydrOXYzine PAMOATE 25 MG CAPSULE (FP) PO PRN (00:38)
[2022-04-13] MEDS ORDERED: P-EPHED 60MG/TRIPROLIDI 2.5MG TABLET PO PRN (00:38)
[2022-04-13] MEDS ORDERED: ONDANSETRON *ODT* 4 MG TABLET SL PRN (00:38)
[2022-04-13] MEDS ORDERED: guaiFENesin 200 MG/10 ML 10 ML UNIT-DOSE CUPS PO PRN (00:38)
[2022-04-13] MEDS ORDERED: BENZOCAINE/MENTHOL (CHLORASEPTIC ) LOZENGE MM PRN (00:38)
[2022-04-13] MEDS ORDERED: MAGNESIUM HYDROX 2400MG/30ML ORAL SUSPENSION 30 ML CUP PO PRN (00:38)
[2022-04-13] MEDS ORDERED: NICOTINE POLACRILEX 2 MG GUM BUC PRN (00:38)
[2022-04-13] MEDS ORDERED: DICYCLOMINE HCL 10 MG CAPSULE PO PRN (00:38)
[2022-04-13] MEDS ORDERED: LOPERAMIDE HCL 2 MG CAPSULE PO PRN (00:38)
[2022-04-13] MEDS ORDERED: MELATONIN 5 MG TABLETS PO PRN (00:38)
[2022-04-13] MEDS ORDERED: MAG HYDROX/AL HYDROX/SIMETH 30 ML UNIT-DOSE CUP PO PRN (00:38)
[2022-04-13] MEDS ORDERED: BISMUTH SUBSALICYLATE 524 MG/30 ML PO PRN (00:38)
[2022-04-13] MEDS ORDERED: MAGNESIUM CITRATE 300 ML BOTTLE PO PRN (00:38)
[2022-04-13] MEDS ORDERED: IBUPROFEN 600 MG TABLET (FP) PO PRN (00:38)
[2022-04-13] MEDS ORDERED: ACETAMINOPHEN 325 MG TABLET (FP) PO PRN ×2 (00:38)
[2022-04-13] MEDS ORDERED: METHOCARBAMOL 500 MG TABLET PO PRN (00:38)
[2022-04-13] MEDS ORDERED: IBUPROFEN 400 MG TABLET (FP) PO PRN (00:38)
[2022-04-13 01:34] VITALS: BMI 20.2
[2022-04-13] MEDS: PRENATAL VITAMINS W/ FOLIC ACID TABLET (FP) PO SCH (12:50)
[2022-04-13] MEDS: THIAMINE HCL 100 MG TABLET (FP) PO SCH (23:00)
[2022-04-14] MEDS ORDERED: ALBUTEROL SO4 HFA INHALER IH PRN (10:04)
[2022-04-14] MEDS ORDERED: HYDROCHLOROTHIAZIDE 12.5 MG CAPSULE (FP) PO SCH ×2 (10:15)
[2022-04-14] MEDS ORDERED: HYDROCHLOROTHIAZIDE 25 MG TABLET (FP) PO SCH (12:18)
[2022-04-14] MEDS: PRENATAL VITAMINS W/ FOLIC ACID TABLET (FP) PO SCH (13:31)
[2022-04-14] MEDS: THIAMINE HCL 100 MG TABLET (FP) PO SCH (23:35)
[2022-04-15 06:21] VITALS: RESP 18
[2022-04-15] MEDS: PRENATAL VITAMINS W/ FOLIC ACID TABLET (FP) PO SCH (10:58)
[2022-04-15] MEDS ORDERED: INSULIN SLIDING SCALE (NOVOLOG) 1 VIAL SQ SCH (11:00)
[2022-04-15] MEDS ORDERED: INSULIN (NOVOLOG) ASPART 100 UNITS/ML 10ML VIAL ONE (11:38)
[2022-04-15 12:25] VITALS: BP 127/84; PULSE 86; TEMP 97.1
== END 2022-04-15 12:25 | disposition home or self-care (01) | DRG 773 ==
LOC: YASAS 21:33 → Y6N 04-13 11:57
PROVIDERS: ADMIT Allergy & Immunology; ATTEND Surgery
PROC: HZ2ZZZZ Detoxification Services for Substance Abuse Treatment (ICD-10-PCS; principal; 2022-04-13)
DX: F11.23 Opioid dependence with withdrawal (principal); F10.230 Alcohol dependence with withdrawal, uncomplicated; F14.20 Cocaine dependence, uncomplicated; F16.10 Hallucinogen abuse, uncomplicated; F17.213 Nicotine dependence, cigarettes, with withdrawal; I10 Essential (primary) hypertension; J45.20 Mild intermittent asthma, uncomplicated; E11.9 Type 2 diabetes mellitus without complications; Z79.4 Long term (current) use of insulin
CPT/HCPCS: 82962; C9803-CS; U0003; U0005

== ENCOUNTER 2022-10-21 04:49 | Inpatient (IN) | payer OTHER ==
[2022-10-21 06:10] VITALS: BMI 26.5
[2022-10-21] MEDS ORDERED: NALOXONE HCL 0.4 MG/ML VIAL IM PRN (10:00)
[2022-10-21] MEDS ORDERED: guaiFENesin 600 MG TABLET.ER (FP) PO PRN (10:00)
[2022-10-21] MEDS ORDERED: ACETAMINOPHEN 325 MG TABLET (FP) PO PRN (10:00)
[2022-10-21] MEDS ORDERED: NALOXONE HCL (KLOXXADO) 8 MG SPRAY NS PRN (10:00)
[2022-10-21] MEDS ORDERED: BENZONATATE 200 MG CAPSULE PO PRN (10:00)
[2022-10-21] MEDS ORDERED: IBUPROFEN 400 MG TABLET (FP) PO PRN (10:00)
[2022-10-21] MEDS ORDERED: NICOTINE 10 MG CARTRIDGE (INHALER) IH PRN (10:00)
[2022-10-21] MEDS ORDERED: POLYETHYLENE GLYCOL (HEALTHYLAX) 3350 17 GM PACKET PO PRN (10:00)
[2022-10-21] MEDS ORDERED: BENZOCAINE/MENTHOL (CHLORASEPTIC ) LOZENGE MM PRN (10:00)
[2022-10-21] MEDS ORDERED: MAG HYDROX/AL HYDROX/SIMETH 30 ML UNIT-DOSE CUP PO PRN (10:00)
[2022-10-21] MEDS ORDERED: MAGNESIUM HYDROX 2400MG/30ML ORAL SUSPENSION 30 ML CUP PO PRN (10:00)
[2022-10-21] MEDS ORDERED: hydrOXYzine PAMOATE 25 MG CAPSULE (FP) PO PRN (10:00)
[2022-10-21] MEDS: IBUPROFEN 600 MG TABLET (FP) PO PRN (11:36)
[2022-10-21] MEDS ORDERED: IBUPROFEN 600 MG TABLET (FP) PO ONE (11:39)
[2022-10-21] MEDS: PRENATAL VITAMINS W/ FOLIC ACID TABLET (FP) PO SCH (11:49)
[2022-10-21 13:15] LABS: HEMATOCRIT 40.3 % (35.4-49); HEMOGLOBIN 12.9 GM/dL (11.7-16.9); MCH 27.6 pg (25.7-33.7); MCHC 32.1 g/dl (32.0-35.9); PLATELET COUNT 280 10^3/uL (134-434); RBC 4.69 M/mm3 (4.00-5.60); WHITE BLOOD COUNT 4.7 K/mm3 (4.0-10.0)
[2022-10-21 13:46] LABS: CHLORIDE 104 mmol/L (98-107); SODIUM 138 mmol/L (136-145)
[2022-10-21 13:56] LABS: BLOOD UREA NITROGEN 29.9 mg/dL (7-18)
[2022-10-21 13:58] LABS: CREATININE 1.5 mg/dL (0.55-1.3); SGOT/AST 27 U/L (15-37); SGPT/ALT 30 U/L (13-61)
[2022-10-21 14:00] LABS: TOT PROT 6.6 g/dl (6.4-8.2)
[2022-10-21 14:01] LABS: ALK PHOS 84 U/L (45-117)
[2022-10-21 14:03] LABS: ALBUMIN 3.1 g/dl (3.4-5.0); ANION GAP 7 MMOL/L (8-16); CALCIUM 8.9 mg/dL (8.5-10.1); CO2 28 mmol/L (21-32)
[2022-10-21 14:10] LABS: BILIRUBIN,TOTAL 0.5 mg/dL (0.2-1)
[2022-10-21 14:17] LABS: GLUCOSE,RANDOM 559 mg/dL (74-106)
[2022-10-21 14:20] LABS: SYPHILIS W/ RPR CONF NON-REACTIVE (NONREACTIVE)
[2022-10-21] MEDS ORDERED: INSULIN SLIDING SCALE (NOVOLOG) 1 VIAL SQ SCH (16:30)
[2022-10-21] MEDS ORDERED: INSULIN (NOVOLOG) ASPART 100 UNITS/ML 10ML VIAL ONE ×2 (17:06→23:25)
[2022-10-21] MEDS: INSULIN SLIDING SCALE (NOVOLOG) 1 VIAL SQ SCH ×2 (20:42→23:06)
[2022-10-21] MEDS: THIAMINE HCL 100 MG TABLET (FP) PO SCH (23:05)
[2022-10-21] MEDS: MELATONIN 5 MG TABLETS PO SCH (23:05)
[2022-10-22] MEDS: INSULIN SLIDING SCALE (NOVOLOG) 1 VIAL SQ SCH ×4 (07:04→22:18)
[2022-10-22] MEDS ORDERED: chlordiazePOXIDE HCL 25 MG CAPSULE PO PRN (09:58)
[2022-10-22] MEDS: PRENATAL VITAMINS W/ FOLIC ACID TABLET (FP) PO SCH (10:58)
[2022-10-22] MEDS: chlordiazePOXIDE HCL 25 MG CAPSULE PO SCH ×3 (10:59→22:14)
[2022-10-22] MEDS ORDERED: INSULIN (NOVOLOG) ASPART 100 UNITS/ML 10ML VIAL ONE ×2 (17:34→21:31)
[2022-10-22] MEDS ORDERED: INSULIN (LEVEMIR) 100 UNITS/ML UNITS SQ SCH (22:00)
[2022-10-22] MEDS: MELATONIN 5 MG TABLETS PO SCH (22:14)
[2022-10-22] MEDS: THIAMINE HCL 100 MG TABLET (FP) PO SCH (22:14)
[2022-10-23] MEDS: chlordiazePOXIDE HCL 25 MG CAPSULE PO SCH ×5 (05:55→22:11)
[2022-10-23] MEDS: INSULIN SLIDING SCALE (NOVOLOG) 1 VIAL SQ SCH ×4 (07:47→22:08)
[2022-10-23] MEDS: PRENATAL VITAMINS W/ FOLIC ACID TABLET (FP) PO SCH (10:30)
[2022-10-23 10:46] LABS: CALCIUM 8.1 mg/dL (8.5-10.1)
[2022-10-23 10:47] LABS: ALBUMIN 2.6 g/dl (3.4-5.0); BLOOD UREA NITROGEN 17.2 mg/dL (7-18)
[2022-10-23 10:50] LABS: BILIRUBIN,TOTAL 0.7 mg/dL (0.2-1); TOT PROT 5.9 g/dl (6.4-8.2)
[2022-10-23] MEDS ORDERED: INSULIN (NOVOLOG) ASPART 100 UNITS/ML 10ML VIAL ONE ×2 (11:42→16:38)
[2022-10-23 20:31] LABS: URINE APPEARANCE CLEAR; URINE BILIRUBIN NEGATIVE (NEGATIVE); URINE COLOR YELLOW; URINE GLUCOSE (UA) 3+ (NEGATIVE); URINE KETONE NEGATIVE (NEGATIVE); URINE LEUK ESTERASE NEGATIVE (NEGATIVE); URINE NITRITE NEGATIVE (NEGATIVE); URINE PROTEIN TRACE (NEGATIVE); URINE UROBILINOGEN 0.2 mg/dL (0.2-1.0)
[2022-10-23] MEDS: INSULIN (LEVEMIR) 100 UNITS/ML UNITS SQ SCH (22:08)
[2022-10-23] MEDS: MELATONIN 5 MG TABLETS PO SCH (22:11)
[2022-10-23] MEDS: THIAMINE HCL 100 MG TABLET (FP) PO SCH (22:11)
[2022-10-24] MEDS: chlordiazePOXIDE HCL 25 MG CAPSULE PO SCH ×4 (05:58→22:40)
[2022-10-24] MEDS: INSULIN SLIDING SCALE (NOVOLOG) 1 VIAL SQ SCH ×4 (07:10→22:55)
[2022-10-24] MEDS: PRENATAL VITAMINS W/ FOLIC ACID TABLET (FP) PO SCH (10:36)
[2022-10-24] MEDS ORDERED: INSULIN (NOVOLOG) ASPART 100 UNITS/ML 10ML VIAL ONE ×3 (11:27→22:55)
[2022-10-24] MEDS: IBUPROFEN 600 MG TABLET (FP) PO PRN (19:01)
[2022-10-24] MEDS: MELATONIN 5 MG TABLETS PO SCH (22:39)
[2022-10-24] MEDS: THIAMINE HCL 100 MG TABLET (FP) PO SCH (22:39)
[2022-10-24] MEDS: INSULIN (LEVEMIR) 100 UNITS/ML UNITS SQ SCH (22:40)
[2022-10-25] MEDS ORDERED: chlordiazePOXIDE HCL 10 MG CAPSULE PO PRN
[2022-10-25] MEDS: chlordiazePOXIDE HCL 10 MG CAPSULE PO SCH ×4 (06:08→22:44)
[2022-10-25] MEDS ORDERED: INSULIN (NOVOLOG) ASPART 100 UNITS/ML 10ML VIAL ONE ×3 (06:13→22:03)
[2022-10-25] MEDS: INSULIN SLIDING SCALE (NOVOLOG) 1 VIAL SQ SCH ×4 (06:18→22:48)
[2022-10-25] MEDS: PRENATAL VITAMINS W/ FOLIC ACID TABLET (FP) PO SCH (10:24)
[2022-10-25] MEDS: THIAMINE HCL 100 MG TABLET (FP) PO SCH (22:44)
[2022-10-25] MEDS: MELATONIN 5 MG TABLETS PO SCH (22:44)
[2022-10-25] MEDS: LOPERAMIDE HCL 2 MG CAPSULE PO PRN (22:47)
[2022-10-25] MEDS: INSULIN (LEVEMIR) 100 UNITS/ML UNITS SQ SCH (22:48)
[2022-10-26] MEDS: chlordiazePOXIDE HCL 10 MG CAPSULE PO SCH ×2 (06:16→17:58)
[2022-10-26] MEDS ORDERED: INSULIN (NOVOLOG) ASPART 100 UNITS/ML 10ML VIAL ONE ×2 (06:26→16:49)
[2022-10-26] MEDS: INSULIN SLIDING SCALE (NOVOLOG) 1 VIAL SQ SCH ×4 (06:26→22:23)
[2022-10-26] MEDS: PRENATAL VITAMINS W/ FOLIC ACID TABLET (FP) PO SCH (10:23)
[2022-10-26] MEDS: LOPERAMIDE HCL 2 MG CAPSULE PO PRN (21:19)
[2022-10-26] MEDS: INSULIN (LEVEMIR) 100 UNITS/ML UNITS SQ SCH (22:23)
[2022-10-26] MEDS: MELATONIN 5 MG TABLETS PO SCH (22:23)
[2022-10-26] MEDS: THIAMINE HCL 100 MG TABLET (FP) PO SCH (22:24)
[2022-10-27] MEDS ORDERED: chlordiazePOXIDE HCL 10 MG CAPSULE PO ONE (05:00)
[2022-10-27] MEDS: INSULIN SLIDING SCALE (NOVOLOG) 1 VIAL SQ SCH ×2 (06:30→11:39)
[2022-10-27 08:43] VITALS: RESP 18
[2022-10-27] MEDS: PRENATAL VITAMINS W/ FOLIC ACID TABLET (FP) PO SCH (11:41)
[2022-10-27 13:18] VITALS: BP 119/64; PULSE 82; TEMP 97.3
== END 2022-10-27 14:39 | disposition other institution (70) | DRG 774 ==
LOC: YASAS 04:49 → Y6N 12:09
PROVIDERS: ADMIT Allergy & Immunology; ATTEND Surgery
PROC: HZ2ZZZZ Detoxification Services for Substance Abuse Treatment (ICD-10-PCS; principal; 2022-10-21)
DX: F10.230 Alcohol dependence with withdrawal, uncomplicated (principal); F14.20 Cocaine dependence, uncomplicated; F16.20 Hallucinogen dependence, uncomplicated; F12.20 Cannabis dependence, uncomplicated; F17.210 Nicotine dependence, cigarettes, uncomplicated; F19.282 Other psychoactive substance dependence with psychoactive substance-induced sleep disorder; F20.9 Schizophrenia, unspecified; I10 Essential (primary) hypertension; J45.20 Mild intermittent asthma, uncomplicated; K21.9 Gastro-esophageal reflux disease without esophagitis; E11.9 Type 2 diabetes mellitus without complications; Z79.4 Long term (current) use of insulin
CPT/HCPCS: 36415; 80053; 81003; 82140; 82962; 85027; 86780; 86803; C9803-CS; U0003; U0005

== ENCOUNTER 2022-10-27 14:38 | Inpatient (IN) | payer OTHER ==
[2022-10-27 15:09] VITALS: RESP 18
[2022-10-27] MEDS ORDERED: BENZONATATE 200 MG CAPSULE PO PRN (15:44)
[2022-10-27] MEDS ORDERED: guaiFENesin 600 MG TABLET.ER (FP) PO PRN (15:44)
[2022-10-27] MEDS ORDERED: NALOXONE HCL 0.4 MG/ML VIAL IVPUSH PRN (15:44)
[2022-10-27] MEDS ORDERED: BENZOCAINE/MENTHOL (CHLORASEPTIC ) LOZENGE MM PRN (15:44)
[2022-10-27] MEDS ORDERED: IBUPROFEN 600 MG TABLET (FP) PO PRN (15:44)
[2022-10-27] MEDS ORDERED: IBUPROFEN 400 MG TABLET (FP) PO PRN (15:44)
[2022-10-27] MEDS ORDERED: LOPERAMIDE HCL 2 MG CAPSULE PO PRN (15:44)
[2022-10-27] MEDS ORDERED: NICOTINE 10 MG CARTRIDGE (INHALER) IH PRN (15:44)
[2022-10-27] MEDS ORDERED: MAGNESIUM HYDROX 2400MG/30ML ORAL SUSPENSION 30 ML CUP PO PRN (15:44)
[2022-10-27] MEDS ORDERED: MAG HYDROX/AL HYDROX/SIMETH 30 ML UNIT-DOSE CUP PO PRN (15:44)
[2022-10-27] MEDS ORDERED: NALOXONE HCL (KLOXXADO) 8 MG SPRAY NS PRN (15:44)
[2022-10-27] MEDS ORDERED: POLYETHYLENE GLYCOL (HEALTHYLAX) 3350 17 GM PACKET PO PRN (15:44)
[2022-10-27] MEDS ORDERED: ACETAMINOPHEN 325 MG TABLET (FP) PO PRN (15:44)
[2022-10-27] MEDS ORDERED: NICOTINE 14 MG/24 HOURS TOPICAL PATCH TD PRN (15:44)
[2022-10-27] MEDS ORDERED: NICOTINE POLACRILEX 4 MG GUM BUC PRN (15:44)
[2022-10-27] MEDS: INSULIN SLIDING SCALE (NOVOLOG) 1 VIAL SQ SCH (17:29)
[2022-10-27] MEDS: THIAMINE HCL 100 MG TABLET (FP) PO SCH (21:57)
[2022-10-27] MEDS: MELATONIN 5 MG TABLETS PO SCH (21:57)
[2022-10-27] MEDS: METHOCARBAMOL 500 MG TABLET PO PRN (23:36)
[2022-10-28] MEDS: INSULIN SLIDING SCALE (NOVOLOG) 1 VIAL SQ SCH ×2 (07:08→17:29)
[2022-10-28 07:12] VITALS: BP 101/64; PULSE 77; TEMP 97.5
[2022-10-28] MEDS: PRENATAL VITAMINS W/ FOLIC ACID TABLET (FP) PO SCH (09:53)
[2022-10-28] MEDS: MELATONIN 5 MG TABLETS PO SCH (21:00)
[2022-10-28] MEDS: THIAMINE HCL 100 MG TABLET (FP) PO SCH (21:00)
[2022-10-28] MEDS: METHOCARBAMOL 500 MG TABLET PO PRN (21:01)
[2022-10-29] MEDS: hydrOXYzine PAMOATE 25 MG CAPSULE (FP) PO PRN ×3 (00:18→22:20)
[2022-10-29] MEDS: INSULIN SLIDING SCALE (NOVOLOG) 1 VIAL SQ SCH ×2 (06:44→17:43)
[2022-10-29] MEDS ORDERED: DICYCLOMINE HCL 10 MG CAPSULE PO PRN (10:24)
[2022-10-29] MEDS ORDERED: TRIMETHOBENZAMIDE HCL 200MG/2ML INJ IM ONE (10:45)
[2022-10-29] MEDS: PRENATAL VITAMINS W/ FOLIC ACID TABLET (FP) PO SCH (10:57)
[2022-10-29] MEDS: THIAMINE HCL 100 MG TABLET (FP) PO SCH (22:20)
[2022-10-29] MEDS: METHOCARBAMOL 500 MG TABLET PO PRN (22:20)
[2022-10-29] MEDS: RIFAXIMIN 550 MG TABLET PO SCH (22:20)
[2022-10-29] MEDS: MELATONIN 5 MG TABLETS PO SCH (22:21)
[2022-10-30] MEDS: INSULIN SLIDING SCALE (NOVOLOG) 1 VIAL SQ SCH ×2 (07:05→16:55)
[2022-10-30] MEDS: RIFAXIMIN 550 MG TABLET PO SCH ×2 (11:06→21:01)
[2022-10-30] MEDS: PRENATAL VITAMINS W/ FOLIC ACID TABLET (FP) PO SCH (11:06)
[2022-10-30] MEDS: THIAMINE HCL 100 MG TABLET (FP) PO SCH (21:01)
[2022-10-30] MEDS: hydrOXYzine PAMOATE 25 MG CAPSULE (FP) PO PRN (21:01)
[2022-10-30] MEDS: METHOCARBAMOL 500 MG TABLET PO PRN (21:01)
[2022-10-30] MEDS: MELATONIN 5 MG TABLETS PO SCH (21:01)
[2022-10-31] MEDS: INSULIN SLIDING SCALE (NOVOLOG) 1 VIAL SQ SCH (06:53)
[2022-10-31] MEDS: RIFAXIMIN 550 MG TABLET PO SCH (10:27)
[2022-10-31] MEDS: PRENATAL VITAMINS W/ FOLIC ACID TABLET (FP) PO SCH (10:28)
== END 2022-10-31 11:03 | disposition left against medical advice (07) | DRG 770 ==
LOC: YASAS 14:38 → Y3W 14:40
PROVIDERS: ADMIT Allergy & Immunology; ATTEND Psychiatry & Neurology Pain Medicine
PROC: HZ42ZZZ Group Counseling for Substance Abuse Treatment, Cognitive-Behavioral (ICD-10-PCS; principal; 2022-10-27)
DX: F10.20 Alcohol dependence, uncomplicated (principal); F14.20 Cocaine dependence, uncomplicated; F16.20 Hallucinogen dependence, uncomplicated; F12.20 Cannabis dependence, uncomplicated; F17.210 Nicotine dependence, cigarettes, uncomplicated; F20.9 Schizophrenia, unspecified; I10 Essential (primary) hypertension; J45.20 Mild intermittent asthma, uncomplicated; K21.9 Gastro-esophageal reflux disease without esophagitis; E11.9 Type 2 diabetes mellitus without complications; Z79.4 Long term (current) use of insulin
CPT/HCPCS: 36415; 82140; 82962; 86803

== ENCOUNTER 2023-09-25 10:52 | Inpatient (IN) | payer OTHER ==
[2023-09-25 12:32] VITALS: BMI 27.0
[2023-09-25] MEDS ORDERED: NALOXONE HCL 0.4 MG/ML VIAL IM PRN (13:23)
[2023-09-25] MEDS ORDERED: METHOCARBAMOL 500 MG TABLET PO PRN (13:23)
[2023-09-25] MEDS ORDERED: MAG HYDROX/AL HYDROX/SIMETH 30 ML UNIT-DOSE CUP PO PRN (13:23)
[2023-09-25] MEDS ORDERED: BENZONATATE 200 MG CAPSULE PO PRN (13:23)
[2023-09-25] MEDS ORDERED: IBUPROFEN 400 MG TABLET (FP) PO PRN (13:23)
[2023-09-25] MEDS ORDERED: guaiFENesin 600 MG TABLET.ER (FP) PO PRN (13:23)
[2023-09-25] MEDS ORDERED: ONDANSETRON *ODT* 4 MG TABLET SL PRN (13:23)
[2023-09-25] MEDS ORDERED: hydrOXYzine PAMOATE 25 MG CAPSULE (FP) PO PRN (13:23)
[2023-09-25] MEDS ORDERED: LOPERAMIDE HCL 2 MG CAPSULE PO PRN (13:23)
[2023-09-25] MEDS ORDERED: NICOTINE POLACRILEX 2 MG GUM BUC PRN (13:23)
[2023-09-25] MEDS ORDERED: MAGNESIUM HYDROX 2400MG/30ML ORAL SUSPENSION 30 ML CUP PO PRN (13:23)
[2023-09-25] MEDS ORDERED: POLYETHYLENE GLYCOL (HEALTHYLAX) 3350 17 GM PACKET PO PRN (13:23)
[2023-09-25] MEDS ORDERED: DICYCLOMINE HCL 10 MG CAPSULE PO PRN (13:23)
[2023-09-25] MEDS ORDERED: NALOXONE HCL (KLOXXADO) 8 MG SPRAY NS PRN (13:23)
[2023-09-25] MEDS ORDERED: BISMUTH SUBSALICYLATE 524 MG/30 ML PO PRN (13:23)
[2023-09-25] MEDS ORDERED: BENZOCAINE/MENTHOL (CHLORASEPTIC ) LOZENGE MM PRN (13:23)
[2023-09-25] MEDS ORDERED: chlordiazePOXIDE HCL 25 MG CAPSULE PO PRN (13:28)
[2023-09-25] MEDS: PRENATAL VITAMINS W/ FOLIC ACID TABLET (FP) PO SCH (13:58)
[2023-09-25] MEDS: NICOTINE 21 MG/24 HOURS TOPICAL PATCH TD SCH (13:58)
[2023-09-25] MEDS ORDERED: INSULIN (NOVOLOG) ASPART 100 UNITS/ML 10ML VIAL SQ SCH ×2 (15:16→22:00)
[2023-09-25] MEDS: INSULIN (NOVOLOG) ASPART 100 UNITS/ML 10ML VIAL SQ ONE (15:31)
[2023-09-25] MEDS ORDERED: INSULIN (NOVOLOG) ASPART 100 UNITS/ML 10ML VIAL ONE ×2 (15:37→17:20)
[2023-09-25] MEDS: chlordiazePOXIDE HCL 25 MG CAPSULE PO SCH (17:15)
[2023-09-25] MEDS: INSULIN ASPART SLIDING SCALE (NOVOLOG) 1 VIAL SQ SCH (17:23)
[2023-09-25] MEDS: MELATONIN 5 MG TABLETS PO SCH (22:55)
[2023-09-25] MEDS: THIAMINE HCL 100 MG TABLET (FP) PO SCH (23:00)
[2023-09-26] MEDS ORDERED: INSULIN (NOVOLOG) ASPART 100 UNITS/ML 10ML VIAL ONE ×2 (11:48→17:30)
[2023-09-26 11:49] LABS: CHLORIDE 96 mmol/L (98-107); POTASSIUM 4.5 mmol/L (3.5-5.1); SODIUM 134 mmol/L (136-145)
[2023-09-26 11:53] LABS: CALCIUM 9.2 mg/dL (8.5-10.1)
[2023-09-26 11:54] LABS: ALBUMIN 3.5 g/dl (3.4-5.0); ANION GAP 7 mmol/L (4-13); BLOOD UREA NITROGEN 19.3 mg/dL (7-18); CO2 30 mmol/L (21-32)
[2023-09-26 11:57] LABS: CREATININE 1.4 mg/dL (0.55-1.3); SGOT/AST 33 U/L (15-37); SGPT/ALT 50 U/L (13-61)
[2023-09-26 11:59] LABS: TOT PROT 7.8 g/dl (6.4-8.2)
[2023-09-26 12:00] LABS: ALK PHOS 97 U/L (45-117); HEMATOCRIT 40.5 % (35.4-49); HEMOGLOBIN 13.8 GM/dL (11.7-16.9); MCHC 34.1 g/dl (32.0-35.9); MEAN CELL VOLUME 85.1 fl (80-96); MEAN PLT VOLUME 8.5 fl (7.5-11.1); PLATELET COUNT 293 10^3/uL (134-434); RBC 4.75 M/mm3 (4.00-5.60); RDW 14.1 % (11.9-15.9)
[2023-09-26 12:13] LABS: GLUCOSE,RANDOM 585 mg/dL (74-106)
[2023-09-26] MEDS: IBUPROFEN 600 MG TABLET (FP) PO PRN (23:29)
[2023-09-27] MEDS: chlordiazePOXIDE HCL 25 MG CAPSULE PO SCH (05:55)
[2023-09-27] MEDS ORDERED: INSULIN (NOVOLOG) ASPART 100 UNITS/ML 10ML VIAL ONE ×2 (06:10→11:53)
[2023-09-27] MEDS: INSULIN ASPART SLIDING SCALE (NOVOLOG) 1 VIAL SQ SCH (17:08)
[2023-09-27] MEDS: INSULIN (LEVEMIR) 100 UNITS/ML UNITS SQ SCH (22:15)
[2023-09-27] MEDS: RIFAXIMIN 550 MG TABLET PO SCH (23:00)
[2023-09-28] MEDS ORDERED: chlordiazePOXIDE HCL 10 MG CAPSULE PO PRN
[2023-09-28] MEDS: chlordiazePOXIDE HCL 10 MG CAPSULE PO SCH (05:42)
[2023-09-28] MEDS: HYDROCHLOROTHIAZIDE 12.5 MG CAPSULE (FP) PO SCH (10:22)
[2023-09-28] MEDS ORDERED: INSULIN (NOVOLOG) ASPART 100 UNITS/ML 10ML VIAL ONE ×3 (12:07→21:17)
[2023-09-28] MEDS: LISINOPRIL 5 MG TABLET PO ONE (14:58)
[2023-09-28] MEDS: INSULIN (LEVEMIR) 100 UNITS/ML UNITS SQ SCH (21:40)
[2023-09-28] MEDS: ACETAMINOPHEN 325 MG TABLET (FP) PO PRN (22:44)
[2023-09-29] MEDS: chlordiazePOXIDE HCL 10 MG CAPSULE PO SCH (05:12)
[2023-09-29] MEDS ORDERED: INSULIN (NOVOLOG) ASPART 100 UNITS/ML 10ML VIAL ONE ×5 (07:59→22:52)
[2023-09-29 12:50] LABS: POTASSIUM 4.4 mmol/L (3.5-5.1)
[2023-09-29 12:53] LABS: ALBUMIN 2.8 g/dl (3.4-5.0); BLOOD UREA NITROGEN 17.9 mg/dL (7-18)
[2023-09-29 12:56] LABS: CREATININE 1.1 mg/dL (0.55-1.3); PHOSPHOROUS 3.4 mg/dL (2.5-4.9)
[2023-09-29] MEDS ORDERED: risperiDONE 2 MG TABLET PO SCH (22:00)
[2023-09-29] MEDS: risperiDONE 1 MG TABLET PO SCH (22:14)
[2023-09-29] MEDS: QUEtiapine FUMARATE 100 MG TABLET (FP) PO SCH (22:14)
[2023-09-30] MEDS ORDERED: INSULIN (NOVOLOG) ASPART 100 UNITS/ML 10ML VIAL ONE (05:44)
[2023-09-30] MEDS: chlordiazePOXIDE HCL 10 MG CAPSULE PO ONE (05:47)
[2023-09-30 09:28] VITALS: BP 128/65; PULSE 86; RESP 18; TEMP 98.1
== END 2023-09-30 10:10 | disposition home or self-care (01) | DRG 774 ==
LOC: YASAS 10:52 → Y6N 14:08
PROVIDERS: ADMIT Allergy & Immunology; ATTEND Surgery
PROC: HZ2ZZZZ Detoxification Services for Substance Abuse Treatment (ICD-10-PCS; principal; 2023-09-25)
DX: F10.230 Alcohol dependence with withdrawal, uncomplicated (principal); F14.20 Cocaine dependence, uncomplicated; F16.20 Hallucinogen dependence, uncomplicated; F12.20 Cannabis dependence, uncomplicated; F17.210 Nicotine dependence, cigarettes, uncomplicated; F20.9 Schizophrenia, unspecified; I12.9 Hypertensive chronic kidney disease with stage 1 through stage 4 chronic kidney disease, or unspecified chronic kidney disease; N18.31 Chronic kidney disease, stage 3a; E11.9 Type 2 diabetes mellitus without complications; Z79.4 Long term (current) use of insulin
CPT/HCPCS: 36415; 71045-TC-FY; 80053; 80069; 80305; 80307; 82962; 83036; 85027; 86780; 87635; 87811; 93005; 93010

== ENCOUNTER 2024-02-19 12:49 | Inpatient (IN) | payer OTHER ==
[2024-02-19 13:50] VITALS: BMI 29.7
[2024-02-19] MEDS ORDERED: NICOTINE POLACRILEX 2 MG LOZENGE BC PRN (14:04)
[2024-02-19] MEDS ORDERED: LOPERAMIDE HCL 2 MG CAPSULE PO PRN (14:04)
[2024-02-19] MEDS ORDERED: IBUPROFEN 600 MG TABLET (FP) PO PRN (14:04)
[2024-02-19] MEDS ORDERED: MAGNESIUM HYDROX 2400MG/30ML ORAL SUSPENSION 30 ML CUP PO PRN (14:04)
[2024-02-19] MEDS ORDERED: BENZONATATE 200 MG CAPSULE PO PRN (14:04)
[2024-02-19] MEDS ORDERED: ACETAMINOPHEN 325 MG TABLET (FP) PO PRN (14:04)
[2024-02-19] MEDS ORDERED: POLYETHYLENE GLYCOL (HEALTHYLAX) 3350 17 GM PACKET PO PRN (14:04)
[2024-02-19] MEDS ORDERED: NICOTINE POLACRILEX 2 MG GUM BUC PRN (14:04)
[2024-02-19] MEDS ORDERED: IBUPROFEN 400 MG TABLET (FP) PO PRN (14:04)
[2024-02-19] MEDS ORDERED: guaiFENesin 600 MG TABLET.ER (FP) PO PRN (14:04)
[2024-02-19] MEDS ORDERED: BENZOCAINE/MENTHOL (CHLORASEPTIC ) LOZENGE MM PRN (14:04)
[2024-02-19] MEDS ORDERED: INSULIN (NOVOLOG) ASPART 100 UNITS/ML 10ML VIAL ONE ×2 (16:23→21:39)
[2024-02-19] MEDS: INSULIN ASPART SLIDING SCALE (NOVOLOG) 1 VIAL SQ SCH (16:32)
[2024-02-19] MEDS: INSULIN (NOVOLOG) ASPART 100 UNITS/ML 10ML VIAL SQ ONE (17:51)
[2024-02-19] MEDS: THIAMINE 100 MG TABLET PO SCH (21:23)
[2024-02-19] MEDS: MELATONIN 5 MG TABLETS PO SCH (21:23)
[2024-02-19] MEDS: INSULIN (LEVEMIR) 100 UNITS/ML UNITS SQ SCH (21:25)
[2024-02-19] MEDS: QUEtiapine FUMARATE 200 MG TABLET PO SCH (21:27)
[2024-02-20] MEDS ORDERED: INSULIN (NOVOLOG MIX 70/30) 100 UNITS/ML MDV SQ ONE (07:06)
[2024-02-20] MEDS ORDERED: INSULIN (NOVOLOG) ASPART 100 UNITS/ML 10ML VIAL ONE ×3 (07:06→17:28)
[2024-02-20] MEDS ORDERED: HYDROCHLOROTHIAZIDE 12.5 MG CAPSULE (FP) PO SCH (10:00)
[2024-02-20] MEDS: PRENATAL VITAMINS W/ FOLIC ACID TABLET (FP) PO SCH (10:26)
[2024-02-21] MEDS ORDERED: INSULIN (NOVOLOG) ASPART 100 UNITS/ML 10ML VIAL ONE ×4 (06:37→21:36)
[2024-02-21] MEDS ORDERED: INSULIN (LEVEMIR) 100 UNITS/ML UNITS SQ ONE (21:36)
[2024-02-22] MEDS ORDERED: INSULIN (NOVOLOG) ASPART 100 UNITS/ML 10ML VIAL ONE ×4 (07:24→21:47)
[2024-02-22] MEDS ORDERED: INSULIN (LEVEMIR) 100 UNITS/ML UNITS SQ ONE (21:47)
[2024-02-23] MEDS ORDERED: INSULIN (NOVOLOG) ASPART 100 UNITS/ML 10ML VIAL ONE ×4 (06:36→21:42)
[2024-02-23 16:07] LABS: PH,URINE 5.5 (5.0-8.0); URINE APPEARANCE CLEAR; URINE BILIRUBIN NEGATIVE (NEGATIVE); URINE COLOR YELLOW; URINE GLUCOSE (UA) 3+ (NEGATIVE); URINE KETONE NEGATIVE (NEGATIVE); URINE LEUK ESTERASE NEGATIVE (NEGATIVE); URINE NITRITE NEGATIVE (NEGATIVE); URINE PROTEIN NEGATIVE (NEGATIVE); URINE UROBILINOGEN 0.2 mg/dL (0.2-1.0)
[2024-02-24] MEDS ORDERED: INSULIN (NOVOLOG) ASPART 100 UNITS/ML 10ML VIAL ONE ×2 (06:47→16:41)
[2024-02-24] MEDS ORDERED: BENZONATATE 200 MG CAPSULE PO PRN (11:40)
[2024-02-24] MEDS ORDERED: guaiFENesin 600 MG TABLET.ER (FP) PO PRN (11:40)
[2024-02-24] MEDS ORDERED: BENZOCAINE/MENTHOL (CHLORASEPTIC ) LOZENGE MM PRN (11:40)
[2024-02-24] MEDS ORDERED: ONDANSETRON *ODT* 4 MG TABLET SL PRN (11:40)
[2024-02-24] MEDS ORDERED: BISMUTH SUBSALICYLATE 262 MG/15 ML BTL PO PRN (11:40)
[2024-02-24] MEDS ORDERED: NALOXONE (NARCAN) HCL 4 MG/0.1 ML SPRAY NS PRN (11:40)
[2024-02-24] MEDS ORDERED: DICYCLOMINE HCL 10 MG CAPSULE PO PRN (11:40)
[2024-02-24] MEDS ORDERED: NALOXONE HCL 0.4 MG/ML VIAL IM PRN (11:40)
[2024-02-24] MEDS: BACLOFEN 10 MG TABLET (FP) PO SCH (14:00)
[2024-02-25] MEDS ORDERED: INSULIN (NOVOLOG) ASPART 100 UNITS/ML 10ML VIAL ONE ×4 (06:38→21:51)
[2024-02-25 11:38] LABS: HEMATOCRIT 39.4 % (35.4-49); HEMOGLOBIN 13.4 GM/dL (11.7-16.9); MCHC 34.1 g/dl (32.0-35.9); MEAN CELL VOLUME 82.2 fl (80-96); MEAN PLT VOLUME 7.9 fl (7.5-11.1); PLATELET COUNT 210 10^3/uL (134-434); RBC 4.79 M/mm3 (4.00-5.60); WHITE BLOOD COUNT 4.4 K/mm3 (4.0-10.0)
[2024-02-25 11:39] LABS: BLOOD UREA NITROGEN 12.9 mg/dL (7-18); CALCIUM 8.6 mg/dL (8.5-10.1)
[2024-02-25 11:44] LABS: BILIRUBIN,TOTAL 0.2 mg/dL (0.2-1); TOT PROT 6.2 g/dl (6.4-8.2)
[2024-02-25] MEDS ORDERED: PRENATAL VITAMINS W/ FOLIC ACID TABLET (FP) PO PRN (13:21)
[2024-02-25] MEDS ORDERED: INSULIN (LEVEMIR) 100 UNITS/ML UNITS SQ ONE (21:51)
[2024-02-26] MEDS ORDERED: INSULIN (NOVOLOG) ASPART 100 UNITS/ML 10ML VIAL ONE ×3 (06:59→16:51)
[2024-02-27] MEDS ORDERED: INSULIN (NOVOLOG) ASPART 100 UNITS/ML 10ML VIAL ONE ×4 (07:37→21:53)
[2024-02-27] MEDS: INSULIN (LEVEMIR) 100 UNITS/ML UNITS SQ SCH (21:24)
[2024-02-28] MEDS ORDERED: INSULIN (NOVOLOG) ASPART 100 UNITS/ML 10ML VIAL ONE ×4 (07:59→22:50)
[2024-02-28] MEDS ORDERED: INSULIN (LEVEMIR) 100 UNITS/ML UNITS SQ ONE (22:51)
[2024-02-29] MEDS ORDERED: INSULIN (NOVOLOG) ASPART 100 UNITS/ML 10ML VIAL ONE ×3 (07:38→16:50)
[2024-03-01] MEDS ORDERED: INSULIN (NOVOLOG) ASPART 100 UNITS/ML 10ML VIAL ONE ×5 (07:59→21:47)
[2024-03-02] MEDS ORDERED: INSULIN (NOVOLOG) ASPART 100 UNITS/ML 10ML VIAL ONE ×3 (07:26→21:38)
[2024-03-02] MEDS ORDERED: INSULIN (LEVEMIR) 100 UNITS/ML UNITS SQ ONE (21:38)
[2024-03-03] MEDS ORDERED: INSULIN (NOVOLOG) ASPART 100 UNITS/ML 10ML VIAL ONE ×4 (07:03→21:48)
[2024-03-03] MEDS ORDERED: INSULIN (LEVEMIR) 100 UNITS/ML UNITS SQ ONE (21:48)
[2024-03-04] MEDS ORDERED: INSULIN (NOVOLOG) ASPART 100 UNITS/ML 10ML VIAL ONE ×3 (06:44→21:55)
[2024-03-04] MEDS: INSULIN (LEVEMIR) 100 UNITS/ML UNITS SQ SCH (21:25)
[2024-03-04] MEDS ORDERED: INSULIN (LEVEMIR) 100 UNITS/ML UNITS SQ ONE (21:56)
[2024-03-05] MEDS ORDERED: INSULIN (NOVOLOG) ASPART 100 UNITS/ML 10ML VIAL ONE ×3 (07:40→22:18)
[2024-03-06] MEDS ORDERED: INSULIN (NOVOLOG) ASPART 100 UNITS/ML 10ML VIAL ONE ×2 (06:13→11:32)
[2024-03-06] MEDS: INSULIN ASPART SLIDING SCALE (NOVOLOG) 1 VIAL SQ SCH (17:17)
[2024-03-06] MEDS: INSULIN (NOVOLOG) ASPART 100 UNITS/ML 10ML VIAL SQ ONE (17:33)
[2024-03-06] MEDS: INSULIN (NOVOLOG) ASPART 100 UNITS/ML 10ML VIAL SQ SCH (23:56)
[2024-03-07] MEDS ORDERED: INSULIN (NOVOLOG) ASPART 100 UNITS/ML 10ML VIAL ONE ×3 (07:32→21:45)
[2024-03-07] MEDS: INSULIN ASPART SLIDING SCALE (NOVOLOG) 1 VIAL SQ SCH (07:33)
[2024-03-07] MEDS ORDERED: INSULIN ASPART SLIDING SCALE (NOVOLOG) 1 VIAL SQ SCH (22:00)
[2024-03-07] MEDS ORDERED: INSULIN (NOVOLOG) ASPART 100 UNITS/ML 10ML VIAL SQ SCH (22:00)
[2024-03-08] MEDS ORDERED: INSULIN (NOVOLOG) ASPART 100 UNITS/ML 10ML VIAL ONE ×3 (08:03→16:28)
[2024-03-09] MEDS ORDERED: INSULIN (NOVOLOG) ASPART 100 UNITS/ML 10ML VIAL ONE ×3 (06:39→21:53)
[2024-03-09] MEDS ORDERED: INSULIN (LEVEMIR) 100 UNITS/ML UNITS SQ ONE (21:53)
[2024-03-10] MEDS ORDERED: INSULIN (NOVOLOG) ASPART 100 UNITS/ML 10ML VIAL ONE ×4 (07:08→21:52)
[2024-03-10] MEDS ORDERED: INSULIN (LEVEMIR) 100 UNITS/ML UNITS SQ ONE (21:52)
[2024-03-11] MEDS ORDERED: INSULIN (NOVOLOG) ASPART 100 UNITS/ML 10ML VIAL ONE ×2 (06:46→11:44)
[2024-03-12] MEDS ORDERED: INSULIN (NOVOLOG) ASPART 100 UNITS/ML 10ML VIAL ONE ×3 (06:19→16:36)
[2024-03-12] MEDS ORDERED: INSULIN (LEVEMIR) 100 UNITS/ML UNITS SQ ONE (22:09)
[2024-03-13] MEDS ORDERED: INSULIN (NOVOLOG) ASPART 100 UNITS/ML 10ML VIAL ONE ×3 (06:20→16:45)
[2024-03-14] MEDS ORDERED: INSULIN (NOVOLOG) ASPART 100 UNITS/ML 10ML VIAL ONE ×3 (06:21→16:56)
[2024-03-14] MEDS: MAG HYDROX/AL HYDROX/SIMETH 30 ML UNIT-DOSE CUP PO PRN (06:22)
[2024-03-15] MEDS ORDERED: INSULIN (NOVOLOG) ASPART 100 UNITS/ML 10ML VIAL ONE (06:39)
[2024-03-15 07:03] VITALS: BP 120/77; PULSE 93; RESP 18; TEMP 97.2
== END 2024-03-15 09:10 | disposition home or self-care (01) | DRG 772 ==
LOC: YASAS 12:49 → Y3E 14:40
PROVIDERS: ADMIT Allergy & Immunology; ATTEND Psychiatry & Neurology Pain Medicine
PROC: HZ42ZZZ Group Counseling for Substance Abuse Treatment, Cognitive-Behavioral (ICD-10-PCS; principal; 2024-02-19)
DX: F14.20 Cocaine dependence, uncomplicated (principal); F16.20 Hallucinogen dependence, uncomplicated; F17.210 Nicotine dependence, cigarettes, uncomplicated; F25.9 Schizoaffective disorder, unspecified; F32.A Depression, unspecified; F19.94 Other psychoactive substance use, unspecified with psychoactive substance-induced mood disorder; I10 Essential (primary) hypertension; E11.65 Type 2 diabetes mellitus with hyperglycemia; Z79.4 Long term (current) use of insulin; Z56.0 Unemployment, unspecified; Z59.00 Homelessness unspecified
CPT/HCPCS: 36415; 80053; 80305; 80307; 81003; 82140; 82962; 83036; 85027; 86780; 87811; J0475